=== PATIENT | male | born 1940 | race Caucasian/White ===

== ENCOUNTER 2020-03-26 10:21 | Outpatient (CLI) | payer MEDICARE, SELFPAY ==
--- NOTE | ~2020-03-26 | PE_ITS ---
EXAMINATION: PET skull to mid thigh DATE: 03/26/2020 12:41 INDICATION: Lung nodule TECHNIQUE: Blood glucose level was 122 mg/dL. 10.122 mCi of 18-fluorodeoxyglucose (18-FDG) was admini stered i.v. Low dose computed tomography (CT) images were acquired from the base of the brain to the proximal thighs for attenuation correction and anatomic localization. Positron emission tomography (P ET) images were acquired in the same distribution beginning 82 minutes after injection. The dose-nova th product (DLP) was 491.83 mGy-cm. COMPARISON: None FINDINGS: Head/neck: No abnormal FDG uptake is identified. FDG activity in the oral cavity and vocal cords with out suspicious CT correlate is likely physiologic. Changes in the globes are likely from ocular lens surgery. Chest: There is a 2.9 x 1.3 cm subsolid nodule of the right middle lobe with an approximately 8 mm so lid component. There is minimal associated FDG uptake with an SUV max of 2.5. There is dependent atel ectasis. No pleural effusion or pneumothorax is identified. No pathologically enlarged thoracic lymph nodes are identified. The heart size is normal. Calcified coronary artery atherosclerosis is noted. Abdomen/pelvis/proximal thighs: Physiologic FDG activity is present in the bowel and urinary tract. N o abnormal FDG uptake is identified. The liver, spleen, pancreas, gallbladder, and adrenal glands are normal. The kidneys are unremarkable. No pathologically enlarged abdominal or pelvic lymph nodes are identified. There is no free intraperitoneal gas or evidence of bowel obstruction. Colonic diverticu losis is present without evidence of diverticulitis. There is a 4.8 x 4.6 cm fusiform infrarenal abdo eamon aortic aneurysm. Musculoskeletal: Mild FDG uptake in the shoulders and hips is likely degenerative in nature. No suspi cious FDG uptake is identified. There is severe cervical and lumbar spondylosis. IMPRESSION: 1. Subsegmental nodule of the right middle lobe with an 8 mm solid component and mild associated FDG uptake. Findings could reflect adenocarcinoma in situ/minimally invasive adenocarcinoma or infection/ inflammation. Would recommend follow-up CT in three months or CT guided biopsy. 2. Fusiform infrarenal abdominal aortic aneurysm measuring up to 4.8 cm. Vascular surgical evaluation is recommended. Reviewed, dictated and finalized at location A. IMPRESSION: 1. Subsegmental nodule of the right middle lobe with an 8 mm solid component an d mild associated FDG uptake. Findings could reflect adenocarcinoma in situ/min imally invasive adenocarcinoma or infection/inflammation. Would recommend follo w-up CT in three months or CT guided biopsy. 2. Fusiform infrarenal abdominal aortic aneurysm measuring up to 4.8 cm. Vascul ar surgical evaluation is recommended.
[2020-03-26 10:47] LABS: Glucose Point of Care 122 (65-105)
== END 2020-03-26 10:22 | disposition home or self-care (01) ==
PROVIDERS: Visit Provider Internal Medicine
DX: R91.1 Solitary pulmonary nodule (principal); I71.4 Abdominal aortic aneurysm, without rupture
CPT/HCPCS: 78815; A9552

== ENCOUNTER 2022-06-03 01:07 | Day surgery (SDC) | payer MEDICARE, SELFPAY ==
[2022-05-25 15:53] VITALS: BMI 25.6
--- NOTE | 2022-06-03 07:00 | PM.HPGS ---
History of Present Illness History of Present Illness Consent: Risks, benefits, and alternatives have been discussed and questions answered. Patient agrees to proceed with procedure. Chief complaint: YANIQUE Narrative: Meir Amezquita is a 81 year old male With iron-deficiency anemia. His last hemoglobin was 9.8. He has had a polyp on 1 previous colonoscopy. He does not see blood in his stools. He has no gastrointestinal symptoms at this time. Review of Systems Review of Systems: All systems reviewed & are unremarkable except as noted in HPI and below PMFSH Social History Social History Smoking packs per day: 1 Smoking cigarettes per day: 20.0 Years smoked: 50 Smoking pack-years: 50.00 Smoking status: Former smoker Tobacco type: cigarettes Alcohol intake: never Substance use: never Substance use type: does not use Living arrangements: with family Spiritual care concerns: No Meds Home Medications and Allergies Home Medications Medication Instructions Recorded Confirmed Type ascorbic acid (vitamin C) 500 mg 500 mg PO DAILY 05/25/22 05/25/22 History capsule aspirin 81 mg tablet 81 mg PO DAILY 05/25/22 05/25/22 History atorvastatin 40 mg tablet 40 mg PO DAILY 05/25/22 05/25/22 History cholecalciferol (vitamin D3) 50 50 mcg PO BID 05/25/22 05/25/22 History mcg (2,000 unit) capsule (Vitamin D3) clopidogrel 75 mg tablet 75 mg PO DAILY 05/25/22 05/25/22 History ferrous sulfate 325 mg (65 mg 325 mg PO BID 05/25/22 05/25/22 History iron) tablet fluticasone propionate 50 2 spray intranasal DAILY 05/25/22 05/25/22 History mcg/actuation nasal spray,suspension gabapentin 100 mg capsule 200 mg PO TID 05/25/22 05/25/22 History metformin 500 mg tablet 500 mg PO BID 05/25/22 05/25/22 History omeprazole 20 mg capsule,delayed 20 mg PO BID 05/25/22 05/25/22 History release Allergies Allergy/AdvReac Type Severity Reaction Status Date / Time iohexol Allergy Chest Pain Verified 06/03/22 07:21 [From contrast - CT, X-RAY] codeine AdvReac Intermediate Nausea and Verified 06/03/22 07:21 Vomiting Exam Const: General: alert Orientation/consciousness: patient oriented x3 Resp: Auscultation: clear to auscultation bilaterally Cardio: Rhythm: regular rhythm GI: GI Palp: Yes Soft to palpation and No Tenderness to palpation present (GI) Neuro: General: patient oriented x3 Assessment and Plan Assessment and plan (1) Iron deficiency anemia: Code(s): D50.9 - Iron deficiency anemia, unspecified Status: Acute Assessment and Plan: EGD with possible biopsy or dilatation or cautery.Colonoscopy with possible biopsy or polypectomy or cautery or injection of substances.
[2022-06-03 07:22] VITALS: BP 158/81; PULSE 80; RESP 18; TEMP 35.8; O2SAT 99
[2022-06-03] MEDS: LACTATED RINGERS 1,000 ML 150 ML IV CONT (07:24)
[2022-06-03 07:26] LABS: Glucose Point of Care 194 mg/dl (65-105)
--- NOTE | 2022-06-03 08:10 | WPDANESEPPF ---
Anes - Initial Pre Proc Eval Procedure: Operation Date: 06/03/22 08:30 Proposed Procedures p Esophagogastroduodenoscopy & Colonoscopy - Dominguez Allen MD Date/Time: 06/03/22 08:10 Surgeon: Dominguez Allen MD Pre Op Diagnosis: YANIQUE Patient Data Age: 81 Gender: M Height: 1.68 m Weight: 70.9 kg Last Vital Signs Temp 96.4 F L 06/03/22 07:22 Pulse 80 06/03/22 07:22 Resp 18 06/03/22 07:22 BP 158/81 H 06/03/22 07:22 Pulse Ox 99 06/03/22 07:22 O2 Del Method Room Air 06/03/22 07:22 Allergies Allergy/AdvReac Type Severity Reaction Status Date / Time iohexol Allergy Chest Pain Verified 06/03/22 07:21 [From contrast - CT, X-RAY] codeine AdvReac Intermediate Nausea and Verified 06/03/22 07:21 Vomiting Home Medications Medication Instructions Recorded Confirmed Type ascorbic acid (vitamin C) 500 mg 500 mg PO DAILY 05/25/22 06/03/22 History capsule aspirin 81 mg tablet 81 mg PO DAILY 05/25/22 06/03/22 History atorvastatin 40 mg tablet 40 mg PO DAILY 05/25/22 06/03/22 History cholecalciferol (vitamin D3) 50 50 mcg PO BID 05/25/22 06/03/22 History mcg (2,000 unit) capsule (Vitamin D3) clopidogrel 75 mg tablet 75 mg PO DAILY 05/25/22 06/03/22 History ferrous sulfate 325 mg (65 mg 325 mg PO BID 05/25/22 06/03/22 History iron) tablet fluticasone propionate 50 2 spray intranasal DAILY 05/25/22 06/03/22 History mcg/actuation nasal spray,suspension gabapentin 100 mg capsule 200 mg PO TID 05/25/22 06/03/22 History metformin 500 mg tablet 500 mg PO BID 05/25/22 06/03/22 History omeprazole 20 mg capsule,delayed 20 mg PO BID 05/25/22 06/03/22 History release Laboratory Tests 06/03/22 07:17 POC Capillary Glucose 194 mg/dl H mg/dl (65-105) Patient hx anesthesia problems: none Family hx anesthesia problems: none Results Review: All pre-operative results and documents have been reviewed as part of the pre-operative evaluation. [facility] Social History Social History Smoking packs per day: 1 Smoking cigarettes per day: 20.0 Years smoked: 50 Smoking pack-years: 50.00 Smoking status: Former smoker Tobacco type: cigarettes Alcohol intake: never Substance use: never Substance use type: does not use Living arrangements: with family Spiritual care concerns: No Anes - Eval Final PreProcedure Day of Procedure 06/03/22 08:10 Patient weight: normal Heart: irregular rhythm Lungs: clear to auscultation Airway: Mallampati scale class III Neurological: alert and oriented ASA classification: IV Emergent: no Anesthetic plan: proceed Anesthesia type and monitoring: general GIVS and standard monitoring Results Review: All pre-operative results and documents have been reviewed as part of the pre-operative evaluation. Informed Consent: The patient's anesthetic plan and its attendant risks and benefits were discussed with the patient/family/POA. Questions were solicited and answers provided to the satisfaction of the patient/family/POA.
--- NOTE | 2022-06-03 08:39 | SUR.OPER ---
EGD began at 829- 831, Colonoscopy began at 837.
[2022-06-03 08:55] VITALS: BP 106/63; PULSE 69; RESP 20; O2SAT 96
[2022-06-03 09:05] VITALS: BP 128/67; PULSE 65; RESP 22; O2SAT 97
[2022-06-03 09:15] VITALS: BP 141/70; PULSE 65; RESP 23; O2SAT 95
== END 2022-06-03 09:30 | disposition home or self-care (01) ==
PROVIDERS: Visit Provider Internal Medicine Gastroenterology
PROC: 0DJ08ZZ Inspection of Upper Intestinal Tract, Via Natural or Artificial Opening Endoscopic (ICD-10-PCS; CPT 43235; principal; 2022-06-03 08:30)
DX: C18.0 Malignant neoplasm of cecum (principal); D50.9 Iron deficiency anemia, unspecified; K64.8 Other hemorrhoids; K57.30 Diverticulosis of large intestine without perforation or abscess without bleeding; K21.9 Gastro-esophageal reflux disease without esophagitis; Z79.02 Long term (current) use of antithrombotics/antiplatelets; Z79.82 Long term (current) use of aspirin; Z79.84 Long term (current) use of oral hypoglycemic drugs; Z87.891 Personal history of nicotine dependence
CPT/HCPCS: 45380; 43235; 82948; 88305; J7120

== ENCOUNTER 2023-08-05 00:13 | Day surgery (SDC) | payer MEDICARE, SELFPAY ==
[2023-07-27 11:01] VITALS: BMI 25.8
--- NOTE | 2023-07-27 12:37 | PC.NURSE ---
Spoke with ___PATIENT regarding medication __PLAVIX . Pt. verbalizes understanding that the last dose of __PLAVIX is to be taken on ____07/31/2023 and the Endoscopist will instruct them when to restart after the procedure.
--- NOTE | 2023-08-03 12:05 | SUR.PREOP ---
Patient called regarding upcoming procedure. Reviewed preop instructions, appointment times, and procedure prep.
--- NOTE | 2023-08-04 18:19 | PM.HPGS ---
History of Present Illness History of Present Illness Consent: Risks, benefits, and alternatives have been discussed and questions answered. Patient agrees to proceed with procedure. 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 He returns for surveillance colonoscopy. Review of Systems Review of Systems: All systems reviewed & are unremarkable except as noted in HPI and below PMFSH Social History Social History Smoking packs per day: 1 Smoking cigarettes per day: 20.0 Years smoked: 50 Smoking pack-years: 50.00 Smoking status: Former smoker Tobacco type: cigarettes Alcohol intake: current Substance use: never Substance use type: does not use Living arrangements: with family Spiritual care concerns: No Meds Home Medications and Allergies Home Medications Medication Instructions Recorded Confirmed Type ascorbic acid (vitamin C) 500 mg 500 mg PO DAILY 05/25/22 08/05/23 History capsule aspirin 81 mg tablet 81 mg PO DAILY 05/25/22 08/05/23 History atorvastatin 40 mg tablet 40 mg PO DAILY 05/25/22 08/05/23 History cholecalciferol (vitamin D3) 50 50 mcg PO BID 05/25/22 08/05/23 History mcg (2,000 unit) capsule (Vitamin D3) clopidogrel 75 mg tablet 75 mg PO DAILY 05/25/22 08/05/23 History ferrous sulfate 325 mg (65 mg 325 mg PO BID 05/25/22 08/05/23 History iron) tablet fluticasone propionate 50 2 spray intranasal DAILY 05/25/22 08/05/23 History mcg/actuation nasal spray,suspension gabapentin 100 mg capsule 200 mg PO TID 05/25/22 08/05/23 History metformin 500 mg tablet 500 mg PO BID 05/25/22 08/05/23 History omeprazole 20 mg capsule,delayed 20 mg PO BID 05/25/22 08/05/23 History release acetaminophen 500 mg tablet 500 mg PO BID 07/27/23 08/05/23 History Allergies Allergy/AdvReac Type Severity Reaction Status Date / Time iohexol Allergy Chest Pain Verified 08/05/23 10:59 [From contrast - CT, X-RAY] codeine AdvReac Intermediate Nausea and Verified 08/05/23 10:59 Vomiting Exam Resp: Auscultation: clear to auscultation bilaterally Cardio: Rate: regular rate Rhythm: regular rhythm GI: GI Palp: Yes Soft to palpation and No Tenderness to palpation present (GI) Assessment and Plan Assessment and plan (1) History of colon cancer: Code(s): Z85.038 - Personal history of other malignant neoplasm of large intestine Status: Acute Assessment and Plan: Colonoscopy with possible biopsy or polypectomy or cautery or injection of substances.
[2023-08-05 11:01] VITALS: BP 185/74; PULSE 72; RESP 18; TEMP 36.2; O2SAT 98; BMI 24.7
[2023-08-05] MEDS: LACTATED RINGERS 1,000 ML 150 ML IV CONT (11:12)
[2023-08-05 11:14] LABS: Glucose Point of Care 161 mg/dl (65-105)
--- NOTE | 2023-08-05 11:55 | WPDANESEPPF ---
Anes - Initial Pre Proc Eval Procedure: Operation Date: 08/05/23 12:30 Proposed Procedures p Colonoscopy - Dominguez Allen MD Date/Time: 08/05/23 11:55 Surgeon: Dominguez Allen MD Pre Op Diagnosis: hx of colon ca Patient Data Age: 82 Gender: M Height: 1.68 m Weight: 69.4 kg Last Vital Signs Temp 97.1 F L 08/05/23 11:01 Pulse 72 08/05/23 11:01 Resp 18 08/05/23 11:01 BP 185/74 H 08/05/23 11:01 Pulse Ox 98 08/05/23 11:01 O2 Del Method Room Air 08/05/23 11:01 Allergies Allergy/AdvReac Type Severity Reaction Status Date / Time iohexol Allergy Chest Pain Verified 08/05/23 10:59 [From contrast - CT, X-RAY] codeine AdvReac Intermediate Nausea and Verified 08/05/23 10:59 Vomiting Home Medications Medication Instructions Recorded Confirmed Type ascorbic acid (vitamin C) 500 mg 500 mg PO DAILY 05/25/22 08/05/23 History capsule aspirin 81 mg tablet 81 mg PO DAILY 05/25/22 08/05/23 History atorvastatin 40 mg tablet 40 mg PO DAILY 05/25/22 08/05/23 History cholecalciferol (vitamin D3) 50 50 mcg PO BID 05/25/22 08/05/23 History mcg (2,000 unit) capsule (Vitamin D3) clopidogrel 75 mg tablet 75 mg PO DAILY 05/25/22 08/05/23 History ferrous sulfate 325 mg (65 mg 325 mg PO BID 05/25/22 08/05/23 History iron) tablet fluticasone propionate 50 2 spray intranasal DAILY 05/25/22 08/05/23 History mcg/actuation nasal spray,suspension gabapentin 100 mg capsule 200 mg PO TID 05/25/22 08/05/23 History metformin 500 mg tablet 500 mg PO BID 05/25/22 08/05/23 History omeprazole 20 mg capsule,delayed 20 mg PO BID 05/25/22 08/05/23 History release acetaminophen 500 mg tablet 500 mg PO BID 07/27/23 08/05/23 History Laboratory Tests 08/05/23 11:11 POC Capillary Glucose 161 H mg/dl (65-105) Patient hx anesthesia problems: none Family hx anesthesia problems: none Results Review: All pre-operative results and documents have been reviewed as part of the pre-operative evaluation. [facility] Social History Social History Smoking packs per day: 1 Smoking cigarettes per day: 20.0 Years smoked: 50 Smoking pack-years: 50.00 Smoking status: Former smoker Tobacco type: cigarettes Alcohol intake: current Substance use: never Substance use type: does not use Living arrangements: with family Spiritual care concerns: No Anes - Eval Final PreProcedure Day of Procedure 08/05/23 11:55 Patient weight: normal Heart: regular rate and rhythm Lungs: clear to auscultation Airway: Mallampati scale class II Neurological: alert and oriented Last oral intake: >/= 8 hours ASA classification: III Emergent: no Anesthetic plan: proceed Anesthesia type and monitoring: general GIVS and standard monitoring Results Review: All pre-operative results and documents have been reviewed as part of the pre-operative evaluation. Informed Consent: The patient's anesthetic plan and its attendant risks and benefits were discussed with the patient/family/POA. Questions were solicited and answers provided to the satisfaction of the patient/family/POA.
[2023-08-05 12:38] VITALS: BP 123/49; PULSE 78; RESP 21; O2SAT 93
[2023-08-05 12:48] VITALS: BP 111/48; PULSE 76; RESP 19; O2SAT 95
[2023-08-05 12:58] VITALS: BP 132/63; PULSE 64; RESP 23; O2SAT 98
== END 2023-08-05 13:07 | disposition home or self-care (01) ==
PROVIDERS: Visit Provider Internal Medicine Gastroenterology
PROC: 0DJD8ZZ Inspection of Lower Intestinal Tract, Via Natural or Artificial Opening Endoscopic (ICD-10-PCS; CPT 45378; principal; 2023-08-05 12:30)
DX: Z12.11 Encounter for screening for malignant neoplasm of colon (principal); K64.8 Other hemorrhoids; K57.30 Diverticulosis of large intestine without perforation or abscess without bleeding; Z79.82 Long term (current) use of aspirin; Z79.02 Long term (current) use of antithrombotics/antiplatelets; Z79.84 Long term (current) use of oral hypoglycemic drugs; Z98.0 Intestinal bypass and anastomosis status; Z87.891 Personal history of nicotine dependence; Z85.038 Personal history of other malignant neoplasm of large intestine
CPT/HCPCS: G0105; 82948; J2704; J7120

== ENCOUNTER 2024-12-29 14:36 | Inpatient (IN) | payer MEDICARE, SELFPAY ==
[2024-12-29] VITALS (13 sets, daily range): BP systolic 117–185; BP diastolic 55–74; PULSE 93–102; RESP 14–28; TEMP 37.1–37.4; O2SAT 92–99; BMI 24.2
--- NOTE | ~2024-12-29 | XR_ITS ---
XR chest 1V portable 12/29/2024 15:29 Indication: Weakness Procedure: AP portable chest Comparison: No prior studies for comparison. Findings: Status post median sternotomy for CABG. Heart size normal. There is bilateral airspace dise ase, consistent with pneumonia. Possible small left effusion. No pneumothorax. Impression: 1: Bilateral airspace disease, compatible with pneumonia. Reviewed, dictated and finalized at location B. Impression: 1: Bilateral airspace disease, compatible with pneumonia.
--- NOTE | 2024-12-29 14:48 | ECG_ITS ---
Test Date: 2024-12-29 14:43:10 Measurements Intervals [place] Rate: 102 P: 19 AK: 229 QRS: -60 QRSD: 107 T: 35 QT: 345 QTc: 449 Interpretive Statements SINUS TACHYCARDIA WITH FIRST DEGREE AV BLOCK WITH FREQUENT VENTRICULAR PREMATURE COMPLEXES PATTERN CONSISTENT WITH PULMONARY DISEASE LEFT ANTERIOR FASCICULAR BLOCK [QRS AXIS <= -45, QR IN I, RS IN II] MODERATE ST DEPRESSION [0.05+ mV ST DEPRESSION] INTERPRETATION BASED ON A DEFAULT AGE OF 40 YEARS No previous ECG available for comparison Electronically Signed On 12-30-2024 17:05:33 CDT by Hector Calabrese M.D.
[2024-12-29 15:05] LABS: Basophils Percent Auto 0.6 % (0.2-1.2); Hematocrit 37.2 % (42.0-52.0); Hemoglobin 11.8 g/dL (14.0-18.0); Immature Granulocyte Absolute 0.02 K/mm3 (0.00-0.031); Immature Granulocyte Percent A 0.3 % (0-0.5); Lymphocytes Absolute Auto 0.81 K/mm3 (0.9-3.2); Lymphocytes Percent Auto 11.2 % (18.3-44.2); Mean Corpuscular HGB Conc 31.7 g/dl (32-36); Mean Corpuscular Hemoglobin 29.1 pg (26-34); Mean Corpuscular Volume 91.6 fl (80-100); Mean Platelet Volume 9.6 fl (7.4-10.4); Monocytes Percent Auto 14.4 % (2.6-8.5); Neutrophils Absolute Auto 5.3 K/mm3 (1.3-6.7); Neutrophils Percent Auto 73.5 % (45.5-73.1); Platelet Count Result 228 k/mm3 (150-375); Red Blood Count 4.06 M/mm3 (4.6-6.20); Red Cell Distribution Width 14.7 % (11.5-14.5); White Blood Count 7.2 K/mm3 (4.5-10.0)
[2024-12-29 15:10] LABS: Alanine Aminotransferase 32 U/L (6-50); Albumin Level 4.5 g/dL (3.5-5.1); Alkaline Phosphatase 56 U/L (38-126); Anion Gap 15 mmol/L (4-12); Aspartate Amino Transferase 37 U/L (17-59); Bilirubin,Total 0.5 mg/dL (0.2-1.3); Blood Urea Nitrogen 18 mg/dL (9-20); Calcium 9.4 mg/dL (8.4-10.2); Carbon Dioxide 20 mmol/L (22-30); Chloride 101 mmol/L (98-107); Estimated CRCL calculation 31 ml/min; Estimated Glomerular Filt Rate 46; Glucose 142 mg/dL (65-110); Potassium 4.8 mmol/L (3.4-5.0); Sodium 136 mmol/L (137-145)
--- OUTSIDE RECORDS SUMMARY | 2024-12-29 15:21 | XMS_ITS | Clinical Summary ---
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 3 Active atorvastatin (LIPITOR) 40 MG tablet 1 Active cholecalcifero l (VITAMIN D-3) 25 MCG (1000 UT) capsule Take 1,000 Units by mouth daily Active coenzyme Q-10 100 MG capsule Take 100 mg by mouth daily Active dilTIAZem CD (CARDIZEM CD) 360 MG 24 hr capsule 1 Active ferrous sulfate 325 (65 Fe) MG tablet every 12 hours Activ e fluticasone (FLONASE) 50 MCG/ACT nasal spray 1 Active glimepiride (AMARYL) 4 MG tablet 1 Active Accu-Chek Guide test strip 1 Active lisinopril (PRINIVIL) 10 MG tablet 1 Active magnesium oxide 250 MG tablet Take 250 mg by mouth daily Active metFORMIN (GLUCOPHAGE) 500 MG tablet 1 Active nitroglycerin (NITROSTAT) 0.4 MG SL tablet nitroglycerin 0.4 mg sublingual tablet Active omeprazole (PriLOSEC) [address] capsule 1 Active alpha tocopherol (VITAMIN E) 400 units capsule Take 400 Units by mouth daily Active omega-3 (FISH OIL) 1000 MG capsule Take 500 mg by mouth daily Active Active Problems Problem Noted Date Diagnosed Date 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 Benign essential hypertension 01/04/2020 Overview (06/05/2021): Last Assessment & Plan: -Will resume home medication diltiazem and Lisinopril -OU status, to Q 4hr VS after 24 hours Coronary arteriosclerosis 01/04/2020 Pure hypercholesterolemia 01/04/2020 Type 2 diabetes mellitus without complication Overview (06/05/2021): Last Assessment & Plan: Adult hyperglycemic management -Insulin per protocol -Home glimepiride and metformin on hold -Carbohydrate persistent diet Abdominal aortic aneurysm without rupture 2017 Overview (06/05/2021): Last Assessment & Plan: - Outpatient CTA with 54 mm infrarenal abdominal aortic aneurysm - OR 07/16 for planned EVAR; left limb was noted to partially cover the ostium of the left hypogastric artery; however, brisk flow through the vessel was observed, and the right hypogastric artery was widely patent - ADAT - Q4h NV checks - Monitor for buttock claudication with ambulation - Cr 1.33 post-procedure Gastroesophageal reflux disease 02/26/2017 Immunizations Immunization Administration Dates Next Due Influenza Split High Dose Pr eservative Free IM 05/30/2021,05/19/2019,05/09/2018 Influenza TIV (IM) 05/19/2013 Influenza, Injectable, Mdck, Preservative Free, Quadrivalt 05/14/2020 Moderna Sars-cov-2 Vaccination 10/07/2020,2020 Pneumococcal Conjugate 13-Valent 05/19/2019,08/09 Family History Medical History Relation Comments Kidney disease Neg Hx Social History Tobacco Use Types Packs/Day Years Used Date Smoking Tobacco: Former Smokeless Tobacco: Never Alcohol Use Standard Drinks/Week Comments Not Currently 0 (1 standard drink = 0.6 oz pur e alcohol) Sex and Gender Information Value Date Recorded Sex Assigned at Not on file Legal Sex Male 9:22 AM MDT Gender Identity Not on file Sexual Orientation Not on file Last Filed Vital Signs Vital Sign Reading Time Taken Comments Blood Pressure 136/78 06/09/2021 11:12 AM CDT Pulse 72 06/09/2021 11:12 AM CDT Temperature 36.4 C (97.6 F) 06/09/2021 11:12 AM CDT Respiratory Rate - - Oxygen Saturation - - Inhaled Oxygen Concentration - - Weight 77.1 kg (170 lb) 06/09/2021 11:12 AM CDT Height 170.2 cm (5' 7 ) 06/09/2021 11:12 AM CDT Body Mass Index 26.63 06/09/2021 11:12 AM CDT Plan of Treatment Health Maintenance Due Date Last Done Comments Pneumococcal PPSV23/PCV13 65 + Years / Low and Medium Risk (2 of 3 - PPSV23) 05/19/2020 05/19/2019, 08/24/2014 COVID-19 Vaccine (3 - season) 04/09/202408/2020, 08/09/2020 Influenza Vaccine (Season Ended) 2025 05/14/20, 05/19/2013 Insurance [employer]AGE Care Teams Head Filter Tank Tender Helper Relationship Specialty Start Date End Date Prince Angulo MD [address] [phone] PCP - General Internal Medicine 06/09/21
--- OUTSIDE RECORDS SUMMARY | 2024-12-29 15:21 | XMS_ITS | CONTINUITY OF CARE DOCUMENT ---
Author Name manoj aranda Address Unknown Organization [facility] Address [address] [place] [address] [address] [place] [address] Phone [phone] Care Team Providers Care Program Coordinator Name Role Phone Garrick UGARTE, Pepe Unavailable LUCIA CARTER MD Unavailable [phone] LUCIA CARTER MD Unavailable PROBLEMS Condition Status Date Provider Notes CAD-- PCI to RCA in 1994 active Pepe lewis MD CABG, x 4 [place]ISON to LAD, radia l to OM, SVG to RCA and ramus. 09/2021 active Pepe Mccauley MD Myocardial infarction ([place]) active Pepe taylor MD Carotid arterial disease-->7 0% MARIA L, s/p CEA 11/28 active Pepe Mccauley MD Hyperlipidemia active Pepe Mccauley MD HTN active Pepe Mccauley MD CHF completed - Pepe Mccauley MD Syncope completed - Pepe Mccauley MD Diabetes mellitus, type 2 active Pepe donato MD AAA s/p repair - follow at [facility] active Pepe Mccauley MD Peripheral vascular disease (PVD) active Pepe Mccauley MD GERD active Pepe Mccauley MD CKD 3 active Pepe Mccauley MD Chronic back pain active Pepe Mccauley MD Colon cancer, stage 1 s/p surgery in 2021 active Pepe Mccauley MD PACs completed - Pepe Mccauley MD ENCOUNTERS Date Type Provider Location Encounter Diag nosis - In-person encounter Office Visit Pepe Mccauley MD [facility] - In-person encounter Office Visit Pepe Mccauley MD [facility] CHFSyncopePACs - In-person encounter Office Visit Pepe Mccauley MD [facility] - In-person encounter Office Visit Pepe Mccauley MD [facility] - In-person encounter Office Visit Pepe Mccauley MD [facility] Carotid arterial disease-->70% MARIA L, s/p CEA 11/28Colon cancer, stage 1 s/p surgery in 2021 - In-person encounter Office Visit Pepe Mccauley MD [facility] AAA s/p repair - follow at [facility] cancer, stage 1 s/p surgery in 2021 - In-person encounter Office Visit Pepe Mccauley MD [facility] Carotid arterial disease-->70% MARIA L, s/p CEA 11/28 - In-person encounter Office Visit Pepe Mccauley MD [facility] CAD-- PCI to RCA in 1994CABG, x 4 [place] to LAD, radial to OM, SVG to RCA and ramus. 09/2021Myocardial infarction ([place])Carotid arterial disease-->70% MARIA L, s/p CEA 11/28HyperlipidemiaHTND iabetes mellitus, type 2AAA s/p repair [facility]GERDCKD 3Chronic back pain VITAL SIGNS Date Observation Value Provider Body Mass Index (Ratio) 25.82 kg/m2 Khari Mccauley MD blood pressure, diastolic 70 mm[Hg] An iyah [place] blood pressure, systolic 144 mm[Hg] Nunu alaniz [place] oxygen saturation, oximetry 97 % Kelley [place] pulse rate 73 /min Kelley [place] respiratory rate E&M 12 /min Kelley [place] weight E&M 160 [lb_av] Kelley [place] height E&M 66 [in_i] Kelley [place] blood pressure, cuff size regular An ira [place] Body Mass Index (Ratio) 25.60 kg/m2 Khari Mccauley MD weight E&M 158.6 [lb_av] Samantha Maspeth oxygen saturation, oximetry 94 % Samantha Maspeth pulse rate 77 /min Samantha Maspeth blood pressure, cuff size regular [facility], diastolic 79 mm[Hg] Ta bitha Maspeth blood pressure, systolic 150 mm[Hg] Tab itha Maspeth respiratory rate E&M 12 /min Samantha Maspeth height E&M 66 [in_i] Samantha Maspeth Body Mass Index (Ratio) 25.50 kg/m2 Khari Mccauley MD blood pressure, diastolic 83 mm[Hg] Juliette lenore [place] blood pressure, systolic 156 mm[Hg] Any a Dioni oxygen saturation, oximetry 91 % Mariajose Dioni pulse rate 86 /min Mariajose Dioni weight E&M 158 [lb_av] Mariajose Dioni blood pressure, cuff size large An lenore [place] height E&M 66 [in_i] Mariajose Dioni Body Mass Index (Ratio) 23.08 kg/m2 Khari Mccauley MD pulse rate 73 /min [facility] blood pressure, cuff size regular Fa [facility] blood pressure, diastolic 86 mm[Hg] Fa [facility] blood pressure, systolic 163 mm[Hg] Dipak [facility] oxygen saturation, oximetry 97 % [facility] respiratory rate E&M 16 /min Toya goodson weight E&M 143 [lb_av] [facility] height E&M 66 [in_i] [facility] Body Mass Index (Ratio) 25.66 kg/m2 Khari Mccauley MD blood pressure, diastolic 78 mm[Hg] [facility] blood pressure, systolic 165 mm[Hg] [facility] blood pressure, diastolic 78 mm[Hg] [facility] blood pressure, systolic 165 mm[Hg] [facility] pulse rate 68 /min Robert [facility] blood pressure, cuff size regular Carlton rr blood pressure, diastolic 78 mm[Hg] Carlton rret blood pressure, systolic 165 mm[Hg] [facility] oxygen saturation, oximetry 99 % Robert respiratory rate E&M 12 /min Robert weight E&M 159 [lb_av] Robert height E&M 66 [in_i] [facility] Body Mass Index (Ratio) 25.50 kg/m2 Khari Mccauley MD blood pressure, diastolic 86 mm[Hg] Juliette [place]ley blood pressure, systolic 189 mm[Hg] Lynne [place] weight E&M 158 [lb_av] Mariajose [place] height E&M 66 [in_i] Mariajose Wheatley blood pressure, cuff size large An lenore [place]ley pulse rate 69 /min Mariajose Wheatley oxygen saturation, oximetry 99 % Mariajose Wheatley Body Mass Index (Ratio) 25.18 kg/m2 Khari Mccauley MD blood pressure, diastolic 70 mm[Hg] Sa ra Bailon blood pressure, systolic 152 mm[Hg] Latha a Bailon respiratory rate E&M 17 /min Wendy Si ms oxygen saturation, oximetry 100 % Wendy Bailon pulse rate 74 /min Wendy Bailon weight E&M 156 [lb_av] Wendy Bailon blood pressure, cuff size regular Sa ra [place] height E&M 66 [in_i] [facility] Body Mass Index (Ratio) 25.34 kg/m2 Antoni Brian blood pressure, diastolic 83 mm[Hg] Li nkLogic blood pressure, systolic 162 mm[Hg] Kandace kLog blood pressure, diastolic 83 mm[Hg] Susan White blood pressure, systolic 162 mm[Hg] Christiane salaswellingtonmiguelito White respiratory rate E&M 16 /min Estrella White oxygen saturation, oximetry 100 % Liberty White pulse rate 86 /min Liberty webster height E&M 66 [in_i] Liberty webster weight E&M 157 [lb_av] Liberty webster blood pressure, cuff size regular Susan WardTish Christopher ALLERGIES Allergy Name Onset Date Reaction Criticality Status IVP DYE Low Criticality active CODEINE Low Criticality active HISTORY OF MEDICATION USE Medication Status Instructions Dates Provider Indications Com ments magnesium oxide 400 mg (241.3 mg magnesium) tablet active TAKE 1 TABLET BY MOUTH EVERY DAY Amelie Oglesby [employer] glimepiride 2 mg tablet active Pepe Mccauley MD magnesium oxide 400 mg (241.3 mg magnesium) tablet active TAKE 1 TABLET BY MOUTH EVERY DAY Pepe Mccauley MD amlodipine 2.5 mg tablet active Take 1 tablet by mouth once a day Amelie Wilson RN gabapentin 100 mg capsule completed Take 1 twice a day - Antoni Torres atorvastatin 40 mg tablet active Wendy Bailon ferrous sulfate 325 mg (65 mg iron) tablet active Take twice a day Wendy Williams Flonase Allergy Relief unspecified unspecified active Wendy Bailon omeprazole 20 mg capsule,delayed release(DR/EC) active twice a day eWndy Williams aspirin 81 mg tablet,delayed release (DR/EC) active Take 1 tablet by mouth once a day Antoni Torres clopidogrel 75 mg tablet active Antoni Torres metformin 500 mg tablet active Antoni Torres SOCIAL HISTORY Date Observation Value Provider personal history of marijuana use no Amelie Youmiglia [facility] drug use no Amelie Avelinomig silviano [facility] alcohol use no Amelie Youmig silviano [facility] smoking status Never smoker Amelie Roberts igldamián [facility] smoking status Never smoker Toya Cornelius social history reviewed E&M revi ewed - no changes required Pepe Mccauley MD smoking status Never smoker Mariajose Wheatley number of grandchildren Pepe Razo social history reviewed E&M revi ewed - no changes required Pretty Razo social history E&M S moking History: Nereyda jackson has never smoked. Pretty Razo social history reviewed E&M revi ewed - no changes required Antoni Torres smoking status Never smoker Antoni Torres social history reviewed E&M revi ewed - no changes required Antoni Torres FUNCTIONAL STATUS Date Observation Value Provider HRA, CV Assess/Plan, Angina (inactive) Management Plan continue current therapy Amelie Reny [facility] HRA, CV Assess/Plan, Angina (inactive) Management Plan continue current therapy Pepe Mccauley MD HRA, CV Assess/Plan, Angina (inactive) Management Plan continue current therapy Pepe Mccauley MD HRA, CV Assess/Plan, Angina (inactive) Management Plan continue current therapy Antoni Torres HRA, CV Assess/Plan, Angina (inactive) Management Plan continue current therapy Pepe Mccauley MD HRA, CV Assess/Plan, Angina (inactive) Management Plan continue current therapy Pretty Razo HRA, CV Assess/Plan, Angina (inactive) Management Plan continue current therapy Antoni Torres HRA, CV Assess/Plan, Angina (inactive) Management Plan continue current therapy Antoni Torres INSURANCE PROVIDERS Payer name Policy type / Coverage type [place] red libertarian ID [employer] MEDICARE [employer]AGE [address] 0 [address] (HMO POS) Medicare [id number] ADVANCE DIRECTIVES Name Date DISCUSSED - NO DECISION MADE TREATMENT PLAN Date Name Performer [id number],S, Pepe Mccauley MD [id number],B, Pepe Mccauley MD [id number],S, Pepe Mccauley MD [id number],B, Pepe Mccauley MD [id number],S, Antoni Garlandmedza i [id number],B, Antoni Garlandmedza i [id number],S, Antoni Ahmedza i [id number],S, Antoni Ahmedza i [id number],S, Antoni Ahmedza i [id number],S, Antoni Ahmedza i [id number],S, Antoni Ahmedza i [id number],S, Antoni Ahmedza i [id number],S, Antoni Ahmedza i [id number],S, Antoni Leong i [id number],S, Antoni Leong i [id number],S, Antoni Leong i [id number],S, Antoni Leong i [id number],B, Antoni Leong i Cardiology:No new ch est pain or SOB H e had nuclear stress last year c ontinue medical management This visit has been a part of the consistent, comprehensive, and ongoing management of the chronic medical condition(s) listed above for the patient. Pepe Mccauley MD Cardiology:reports l ast Hgb A1C of 7.2% His updated medication list for this problem includes: Glimepiride 2 Mg Tablet (Glimepiride) Aspirin 81 Mg Tablet,delayed Release (dr/ec) (Aspirin) ..... Take 1 tablet by mouth once a day Metformin 500 Mg Tablet (Metformin) [facility] Cardiology:follows at [facility] [place] Cardiology:follows with vascular surgery at [facility] Cardiology:remains o n statin therapy H is updated medication list for this problem includes: Atorvastatin 40 Mg Tablet (Atorvastatin) [facility] Cardiology:BP stable c ontinue present medication regimen H is updated medication list for this problem includes: Amlodipine 2.5 Mg Tablet (Amlodipine) ..... Take 1 tablet by mouth once a day Aspirin 81 Mg Tablet,delayed Release (dr/ec) (Aspirin) ..... Take 1 tablet by mouth once a day [facility] Cardiology:No new ch est pain or SOB H e had nuclear stress last year c ontinue medical management [facility] Cardiology: H is updated medication list for this problem includes: Amlodipine 2.5 Mg Tablet (Amlodipine) ..... Take 1 tablet by mouth once a day Aspirin 81 Mg Tablet,delayed Release (dr/ec) (Aspirin) ..... Take 1 tablet by mouth once a day Pepe Mccauley MD Cardiology Pepe Mccauley MD Cardiology Pepe Mccauley MD Cardiology Pepe Mccauley MD Cardiology Pepe Mccauley MD Cardiology:This visi t has been a part of the consistent, comprehensive, and ongoing management of the chronic medical condition(s) listed above for the patient. ' Pepe Mccauley MD Telehealth: H is updated medication list for this problem includes: Amlodipine 2.5 Mg Tablet (Amlodipine) ..... Take 1 tablet by mouth once a day Aspirin 81 Mg Tablet,delayed Release (dr/ec) (Aspirin) ..... Take 1 tablet by mouth once a day Clopidogrel 75 Mg Tablet (Clopidogrel) [facility] Telehealth: H is updated medication list for this problem includes: Amlodipine 2.5 Mg Tablet (Amlodipine) ..... Take 1 tablet by mouth once a day Aspirin 81 Mg Tablet,delayed Release (dr/ec) (Aspirin) ..... Take 1 tablet by mouth once a day [facility] Telehealth: H is updated medication list for this problem includes: Amlodipine 2.5 Mg Tablet (Amlodipine) ..... Take 1 tablet by mouth once a day Aspirin 81 Mg Tablet,delayed Release (dr/ec) (Aspirin) ..... Take 1 tablet by mouth once a day Clopidogrel 75 Mg Tablet (Clopidogrel) [facility] Telehealth: H is updated medication list for this problem includes: Amlodipine 2.5 Mg Tablet (Amlodipine) ..... Take 1 tablet by mouth once a day Aspirin 81 Mg Tablet,delayed Release (dr/ec) (Aspirin) ..... Take 1 tablet by mouth once a day Clopidogrel 75 Mg Tablet (Clopidogrel) [facility] Telehealth [facility] Cardiology: H is updated medication list for this problem includes: Amlodipine 2.5 Mg Tablet (Amlodipine) ..... Take 1 tablet by mouth once a day Aspirin 81 Mg Tablet,delayed Release (dr/ec) (Aspirin) ..... Take 1 tablet by mouth once a day Clopidogrel 75 Mg Tablet (Clopidogrel) Pepe Mccauley MD Cardiology: H is updated medication list for this problem includes: Amlodipine 2.5 Mg Tablet (Amlodipine) ..... Take 1 tablet by mouth once a day Aspirin 81 Mg Tablet,delayed Release (dr/ec) (Aspirin) ..... Take 1 tablet by mouth once a day Clopidogrel 75 Mg Tablet (Clopidogrel) Pepe Mccauley MD Cardiology Pepe Mccauley MD Cardiology Antoni aliyah Cardiology: H is updated medication list for this problem includes: Aspirin 81 Mg Tablet,delayed Release (dr/ec) (Aspirin) ..... Take 1 tablet by mouth once a day Metformin 500 Mg Tablet (Metformin) [facility]: B P today: 163/86 P rior BP: 165/78 (03/23/2023) His updated medication list for this problem includes: Aspirin 81 Mg Tablet,delayed Release (dr/ec) (Aspirin) ..... Take 1 tablet by mouth once a day [facility] Cardiology: H is updated medication list for this problem includes: Aspirin 81 Mg Tablet,delayed Release (dr/ec) (Aspirin) ..... Take 1 tablet by mouth once a day Clopidogrel 75 Mg Tablet (Clopidogrel) [facility] Cardiology: H is updated medication list for this problem includes: Aspirin 81 Mg Tablet,delayed Release (dr/ec) (Aspirin) ..... Take 1 tablet by mouth once a day Clopidogrel 75 Mg Tablet (Clopidogrel) [facility] Cardiology: H is updated medication list for this problem includes: Aspirin 81 Mg Tablet,delayed Release (dr/ec) (Aspirin) ..... Take 1 tablet by mouth once a day Clopidogrel 75 Mg Tablet (Clopidogrel) Antoni Ahmedzai Cardiology Antoni Ahmedzai Cardiology Pepe Mccauley MD Cardiology Pepe Mccauley MD Cardiology Pepe Mccauley MD Cardiology Pepe Mccauley MD Cardiology Antoni Ahmedzai Cardiology Antoni Ahmedzai Cardiology Antoni Ahmedzai Cardiology Antoni Ahmedzai Cardiology Antoni Ahmedzai Cardiology Antoni Ahmedzai Cardiology Antoni Ahmedzai Cardiology Antoni Ahmedzai Cardiology Antoni Ahmedzai Cardiology Antoni Ahmedzai Cardiology Antoni Ahmedzai Cardiology Antoni Ahmedzai Cardiology Antoni Ahmedzai Cardiology Antoni Ahmedzai Date Name Complete Echo HISTORY OF PROCEDURES Procedure Date Procedure Name Provider Procedure Notes S tatus Complex e/m visit add on Pepe Mccauley MD completed Complex e/m visit add on Pepe Mccauley MD completed Complex e/m visit add on Pepe Mccauley MD completed EKG Pepe Mccauley MD completed EKG Pepe Mccauley MD completed
--- OUTSIDE RECORDS SUMMARY | 2024-12-29 15:21 | XMS_ITS | Clinical Summary ---
Author Organization [facility] Fina Parsons Address [address], [place] [address] Care Team Providers Care Health Director Name Role Phone Griffin Angulo MD Primary Care Provider [phone] Allergies Active Allergy Reactions Criticality Noted Date Comments Codeine Nausea and Vomiting Low 07/16/2020 Medications atorvastatin (LIPITOR) 40 mg tablet atorvastatin 40 mg tablet TAKE 1 TABLET BY MOUTH AT BEDTIME 1 Active aspirin (ECOTRIN EC) 81 mg Tablet, Delayed Release (E.C.) Take 81 mg by mouth. Active cholecalciferol , Vitamin D3, (VITAMIN D3) 25 mcg (1,000 unit) Capsule Take 1,000 Units by mouth daily. Active diltiaZEM (TIAZAC) 360 mg Extended Release capsule diltiazem CD 360 mg capsule,extended release 24 hr 1 Active ferrous sulfate 325 mg (65 mg iron) tablet 2 times daily. Ac tive glimepiride (AMARYL) 4 mg tablet glimepiride 4 mg tablet TAKE 1 TABLET BY MOUTH DAILY IN THE MORNING FOR TYPE II DIABETES 1 Active Docosahexanoic Acid-Eicosapent 120-180 mg Capsule Take 500 mg by mouth daily. Active fluticasone propionate (FLONASE) 50 mcg/spray [place], Suspension nasal inhaler 1 Active lisinopriL (PRINIVIL) 10 mg tablet lisinopril 10 mg tablet TAKE 1 TABLET BY MOUTH ONCE DAILY 1 Active metFORMIN (GLUCOPHAGE) 500 mg tablet metformin 500 mg tablet TAKE 1 TABLET BY MOUTH BEFORE BREAKFAST AND 2 TABLETS BEFORE SUPPER 0 Active omeprazole (PriLOSEC) 20 mg Capsule, Delayed Release(E.C.) 1 Active vitamin E 400 unit capsule Take 400 Units by mouth. Active coenzyme Q10 100 mg Capsule Take 100 mg by mouth daily. Active nitroglycerin (NITROSTAT) 0.4 mg Tablet, Sublingual 1 Active ondansetron (Zofran) 4 mg Tablet Zofran 4 mg tablet Take 1 tablet every 6-8 hours by oral route as needed. Active magnesium oxide 250 mg magnesium Tablet Take 250 mg by mouth daily. 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 Family History Medical History Relation Name Comments Heart Disease Son Bradley (61) Relation Name Status Comments Brother Father Mother Sister Son Bradley (61) Alive Social History Tobacco Use Types Packs/Day Years Used Date Smoking Tobacco: Former Cigarettes Tobacco Cessation:Counseling Given: No Alcohol Use Standard Drinks/Week Comments Never 0 (1 standard drink = 0.6 oz pur e alcohol) Sex and Gender Information Value Date Recorded Sex Assigned at Not on file Legal Sex Male 1:31 PM [employer]OR [place] Gender Identity Not on file Sexual Orientation Not on file Last Filed Vital Signs Vital Sign Reading Time Taken Comments Blood Pressure 129/60 08/29/2021 1:10 PM [employer]OR [place] Pulse 65 08/29/2021 1:10 PM [employer]OR [place] Temperature 36.7 C (98 F) 08/29/2021 1:10 PM [employer]OR [place] Respiratory Rate 16 07/24/2021 1:07 PM [employer]OR [place] Oxygen Saturation 97% 08/29/2021 1:10 PM [employer]OR [place] Inhaled Oxygen Concentration - - Weight 75.1 kg (165 lb 9.6 oz) 08/29/2021 1:10 P M [employer] [place] Height 167.6 cm (5' 6 ) 08/29/2021 1:10 PM [employer]OR [place] Body Mass Index 26.73 08/29/2021 1:10 PM DIRECTOR [place] Plan of Treatment Health Maintenance Due Date Last Done Comments DIABETES ANNUAL FOOT EXAM 1960 DIABETES ANNUAL RETINAL EXAM 1960 DIABETES MICROALBUMIN ANNUAL SCREEN 1960 LDL CHOLESTEROL ANNUAL 1960 DTAP/TDAP/TD VACCINES (1 - Tdap) 1961 ZOSTER VACCINE (1 of 2) 1992 RSV VACCINE (60+ or ) (1 - 1-dose 75+ series) 2017 PNEUMOCOCCAL VACCINE 50+ YEA RS (2 of 2 - PPSV23) 07/14/2019 05/19/2019, 08/24/2014 DIABETES HBA1C Q 6 MONTHS 10/02/2021 04/01/2021 INFLUENZA VACCINE (#1) 2024 , 05/30/2021, 05/14/2020, Additional history exists [place] [address] [place] [id number] [place] [id number] Care Teams Health Director Relationship Specialty Start Date End Date Griffin Angulo MD [address] [place] [id number] PCP - General Family Practice 07/24/21
[2024-12-29] MEDS: SODIUM CHLORIDE 0.9% IV 1,000 ML 999 ML IV CONT ×2 (15:30→23:12)
--- NOTE | 2024-12-29 16:29 | ED.WEAKNESS ---
HPI - Weakness General Chief complaint: Weakness Stated complaint: Weakness, COVID + Time Seen by Provider: 12/29/24 15:13 History of Present Illness HPI Narrative: Pt presents with chills and generalized weakness today. Pt did home covid test and it was positive. Called his PCP and they prescribed paxlovid. Pt also has cough and feels like he has fever. Pt denies SOB. Related Data Home Medications ?Medication ?Instructions ?Recorded ?Confirmed ?Last Taken ?Type ascorbic acid (vitamin C) 500 mg 500 mg PO DAILY 05/25/22 08/05/23 Unknown History capsule aspirin 81 mg tablet 81 mg PO DAILY 05/25/22 08/05/23 Unknown History atorvastatin 40 mg tablet 40 mg PO DAILY 05/25/22 08/05/23 Unknown History cholecalciferol (vitamin D3) 50 50 mcg PO BID 05/25/22 08/05/23 Unknown History mcg (2,000 unit) capsule (Vitamin D3) clopidogrel 75 mg tablet 75 mg PO DAILY 05/25/22 08/05/23 07/31/23 History ferrous sulfate 325 mg (65 mg 325 mg PO BID 05/25/22 08/05/23 Unknown History iron) tablet fluticasone propionate 50 2 spray intranasal DAILY 05/25/22 08/05/23 Unknown History mcg/actuation nasal spray,suspension gabapentin 100 mg capsule 200 mg PO TID 05/25/22 08/05/23 Unknown History metformin 500 mg tablet 500 mg PO BID 05/25/22 08/05/23 Unknown History omeprazole 20 mg capsule,delayed 20 mg PO BID 05/25/22 08/05/23 Unknown History release acetaminophen 500 mg tablet 500 mg PO BID 07/27/23 08/05/23 Unknown History Allergies Allergy/AdvReac Type Severity Reaction Status Date / Time iohexol (From contrast - CT, Allergy Chest Pain Verified 12/29/24 14:49 X-RAY) codeine AdvReac Intermediate Nausea and Verified 12/29/24 14:49 Vomiting Review of Systems Review of Systems: All systems reviewed & are unremarkable except as noted in HPI and below PMFSH Social History Social History Smoking packs per day: 1 Smoking cigarettes per day: 20.0 Years smoked: 50 Smoking pack-years: 50.00 Smoking status: Former smoker Tobacco type: cigarettes Alcohol intake: current Substance use: never Substance use type: does not use Living arrangements: with family Spiritual care concerns: No Exam Const: General: no acute distress Nutritional Appearance: well nourished Orientation/consciousness: patient oriented x3 Limitations: no limitations Eyes: Conjunctivae: conjunctivae normal Pupils: Equal, round and reactive pupils present EOM: EOMs intact bilaterally Neck: Neck: normal visual inspection Resp: Effort & Inspection: normal respiratory effort Auscultation: clear to auscultation bilaterally Cardio: Rate: regular rate Rhythm: regular rhythm GI: GI Palp: Yes Soft to palpation Auscultation: normal bowel sounds Skin: General skin exam: normal color Rashes: no rashes Wounds: no wounds Neuro: General: patient oriented x3, moves all extremities, no meningeal signs, no focal motor deficits and CN's II-XI intact bilaterally Speech: normal speech Extrem: General: normal to inspection and no clubbing, cyanosis or edema Psych: Mental Status: mental status grossly normal Affect: normal affect Attitude: cooperative Course Vital Signs Vital signs: Vital Signs Temperature 98.8 F 12/29/24 14:38 Respiratory Rate 28 H 12/29/24 14:38 Blood Pressure 185/67 H 12/29/24 14:38 Pulse Oximetry 92 12/29/24 14:38 Oxygen Delivery Room Air 12/29/24 14:38 Temperature 98.8 F 12/29/24 14:38 Pulse Rate 99 12/29/24 17:49 Respiratory Rate 19 12/29/24 17:49 Blood Pressure 117/61 12/29/24 17:49 Pulse Oximetry 95 12/29/24 17:49 Oxygen Delivery Nasal Cannula 12/29/24 14:46 Oxygen Flow Rate 2 12/29/24 14:46 MDM - Weakness MDM Narrative Medical decision making narrative: Pt presents with weakness and cough tested positive for covid. will get sepsis labs and cxr and ua. lactate elevated will give 1 l IVF and reassess resp status given age before giving full 30 mg/kg. pt haswpneumonia on cxr. will start rocephin and zithromax and call HM. Discussed with Kathie Saravia and will admit. Lab Data 12/29/24 14:51 12/29/24 14:51 Labs: Lab Results 12/29/24 12/29/2425 Range/Units 14:51 16:56 17:05 WBC 7.2 (4.5-10.0) K/mm3 RBC 4.06 L (4.6-6.20) M/mm3 Hgb 11.8 L (14.0-18.0) g/dL Hct 37.2 L (42.0-52.0) % MCV 91.6 (80-100) fl MCH 29.1 (26-34) pg MCHC 31.7 L (32-36) g/dl RDW 14.7 H (11.5-14.5) % Plt Count 228 (150-375) k/mm3 MPV 9.6 (7.4-10.4) fl Immature Gran % (Auto) 0.3 (0-0.5) % Neut % (Auto) 73.5 H (45.5-73.1) % Lymph % (Auto) 11.2 L (18.3-44.2) % [place] % (Auto) 14.4 H (2.6-8.5) % Eos % (Auto) 0.0 (0-4.4) % Baso % (Auto) 0.6 (0.2-1.2) % Lymph # (Auto) 0.81 L (0.9-3.2) K/mm3 [place] # (Auto) 1.0 H (0.1-0.6) K/mm3 Eos # (Auto) 0.0 (0-0.3) K/mm3 Baso # (Auto) 0.0 (0.0-0.1) K/mm3 Abs Immat Gran (auto) 0.02 (0.00-0.031) K/mm3 Absolute Neuts (auto) 5.3 (1.3-6.7) K/mm3 Absolute Nucleated RBC 0.000 (0.0-0.012) K/mm3 Nucleated RBC % 0.0 (0.0-0.2) % Sodium 136 L (137-145) mmol/L Potassium 4.8 (3.4-5.0) mmol/L Chloride 101 (98-107) mmol/L Carbon Dioxide 20 L (22-30) mmol/L Anion Gap 15 H (4-12) mmol/L BUN 18 (9-20) mg/dL Creatinine 1.48 H (0.7-1.3) mg/dL Estim Creat Clear Calc 31 ml/min Estimated GFR 46 L (59 - ) Glucose 142 H (65-110) mg/dL Lactic Acid 4.0 H 2.6 H (0.7-2.0) mmol/L Calcium 9.4 (8.4-10.2) mg/dL Total Bilirubin 0.5 (0.2-1.3) mg/dL AST 37 (17-59) U/L ALT 32 (6-50) U/L Alkaline Phosphatase 56 (38-126) U/L C-Reactive Protein 5.1 H (<1.0) mg/dL Total Protein 8.0 (6.3-8.2) g/dL Albumin 4.5 (3.5-5.1) g/dL Urine Color (Yellow) Urine Appearance (Clear) Urine pH (5.0-9.0) Ur Specific [place] (1.001-1.035) Urine Protein (Negative) mg/dL Urine Glucose (UA) (Negative) mg/dL Urine Ketones (Negative) mg/dL Ur Blood (Man) (Negative) Urine Nitrate (Negative) Urine Bilirubin (Negative) Urine Urobilinogen (<2.0) mg/dL Leukocyte Esterase Rfl (Negative) BULL/UL Urine RBC (0-2) /hpf Urine WBC (0-3) /hpf Ur Squamous Epith Cells (Few) /hpf Urine Bacteria /hpf Urine Casts Influenza A (RT-PCR) Negative (Negative) Influenza B (RT-PCR) Negative (Negative) RSV (RT-PCR) Negative (Negative) SARS-CoV-2 RNA (RT-PCR) Positive A (Negative) 12/29/24 Range/Units 17:46 WBC (4.5-10.0) K/mm3 RBC (4.6-6.20) M/mm3 Hgb (14.0-18.0) g/dL Hct (42.0-52.0) % MCV (80-100) fl MCH (26-34) pg MCHC (32-36) g/dl RDW (11.5-14.5) % Plt Count (150-375) k/mm3 MPV (7.4-10.4) fl Immature Gran % (Auto) (0-0.5) % Neut % (Auto) (45.5-73.1) % Lymph % (Auto) (18.3-44.2) % [place] % (Auto) (2.6-8.5) % Eos % (Auto) (0-4.4) % Baso % (Auto) (0.2-1.2) % Lymph # (Auto) (0.9-3.2) K/mm3 [place] # (Auto) (0.1-0.6) K/mm3 Eos # (Auto) (0-0.3) K/mm3 Baso # (Auto) (0.0-0.1) K/mm3 Abs Immat Gran (auto) (0.00-0.031) K/mm3 Absolute Neuts (auto) (1.3-6.7) K/mm3 Absolute Nucleated RBC (0.0-0.012) K/mm3 Nucleated RBC % (0.0-0.2) % Sodium (137-145) mmol/L Potassium (3.4-5.0) mmol/L Chloride (98-107) mmol/L Carbon Dioxide (22-30) mmol/L Anion Gap (4-12) mmol/L BUN (9-20) mg/dL Creatinine (0.7-1.3) mg/dL Estim Creat Clear Calc ml/min Estimated GFR (59 - ) Glucose (65-110) mg/dL Lactic Acid (0.7-2.0) mmol/L Calcium (8.4-10.2) mg/dL Total Bilirubin (0.2-1.3) mg/dL AST (17-59) U/L ALT (6-50) U/L Alkaline Phosphatase (38-126) U/L C-Reactive Protein (<1.0) mg/dL Total Protein (6.3-8.2) g/dL Albumin (3.5-5.1) g/dL Urine Color Yellow (Yellow) Urine Appearance Clear (Clear) Urine pH 5.0 (5.0-9.0) Ur Specific [place] 1.018 (1.001-1.035) Urine Protein 1+ H (Negative) mg/dL Urine Glucose (UA) Negative (Negative) mg/dL Urine Ketones 1+ H (Negative) mg/dL Ur Blood (Man) Negative (Negative) Urine Nitrate Negative (Negative) Urine Bilirubin Negative (Negative) Urine Urobilinogen 0.2 (<2.0) mg/dL Leukocyte Esterase Rfl Negative (Negative) BULL/UL Urine RBC 0-2 (0-2) /hpf Urine WBC 0-5 (0-3) /hpf Ur Squamous Epith Cells None seen (Few) /hpf Urine Bacteria None seen /hpf Urine Casts 0-2 Influenza A (RT-PCR) (Negative) Influenza B (RT-PCR) (Negative) RSV (RT-PCR) (Negative) SARS-CoV-2 RNA (RT-PCR) (Negative) Discharge Plan Discharge Clinical Impression: Pneumonia Patient Disposition: Still a Patient Condition: Stable Patient Language: Com[place]an Prescriptions: No Action atorvastatin 40 mg tablet 40 mg PO DAILY metformin 500 mg tablet 500 mg PO BID clopidogrel 75 mg tablet 75 mg PO DAILY ferrous sulfate 325 mg (65 mg iron) tablet 325 mg PO BID omeprazole 20 mg capsule,delayed release(DR/EC) 20 mg PO BID aspirin 81 mg Tablet 81 mg PO DAILY gabapentin 100 mg capsule 200 mg PO TID fluticasone propionate 50 mcg/actuation spray,suspension 2 spray INTRANASAL DAILY cholecalciferol (vitamin D3) [Vitamin D3] 50 mcg (2,000 unit) Capsule 50 mcg PO BID ascorbic acid (vitamin C) 500 mg Capsule 500 mg PO DAILY acetaminophen 500 mg Tablet 500 mg PO BID Follow-up/Referrals: Kev,Prince Metcalf [Other]
--- NOTE | 2024-12-29 16:34 | PC.NURSE ---
patient attempted to give urine and missed the urinal, will attempt to get urine again.
[2024-12-29] MEDS: cefTRIAXone 2 GM/NS 100 ML 2 GM/100 ML BAG IVPB (17:03)
[2024-12-29 17:31] LABS: Lactic Acid Reflex 2.6 mmol/L (0.7-2.0)
[2024-12-29 17:34] LABS: CRP 5.1 mg/dL (<1.0)
[2024-12-29] MEDS: AZITHROMYCIN 500 MG/NS 250 ML 500 MG/250 ML BAG 250 MG IVPB (17:46)
[2024-12-29 17:55] LABS: Influenza A QL RT-PCR Negative (Negative); Influenza B QL RT-PCR Negative (Negative); RSV RNA, RT-PCR Negative (Negative); SARS-CoV-2 RNA PCR Positive (Negative)
[2024-12-29 17:57] LABS: Add Urine Microscopic? YES; Appearance Urine Clear (Clear); Bacteria Urine None Seen /hpf; Bilirubin Urine Negative (Negative); Blood Urine Negative (Negative); Color Urine Yellow (Yellow); Glucose Urine UA Negative (Negative); Ketones Urine 1+ mg/dL (Negative); Leukocyte Esterase Ur Negative LEU/UL (Negative); Nitrate Urine Negative (Negative); Non Pathogenic Casts 0-2; Protein Urine 1+ mg/dL (Negative); RBC Urine 0-2 /hpf (0-2); Specific Grav Ur 1.018 (1.001-1.035); Squamous Epithelial Cell Urine None Seen /hpf (Few); Urobilinogen Urine 0.2 mg/dL (<2.0); WBC Urine 0-5 /hpf (0-3)
[2024-12-29 19:16] LABS: Reflex Lactic Acid Yes or No Add Lactic
--- NOTE | 2024-12-29 19:58 | ADMGEN ---
This patient, Meir Amezquita, was admitted to Medical Room 249-01. Patient/family oriented to hospital policies and general routines including ID bracelet, bed and alarms, visiting hours, pain management, procedures, bathroom and other care routines, personal items, smoking policy, room service/diet, and visiting hours. Information on how to activate the Rapid Response Team has been discussed. Patient/Family are encouraged to report perceived risks to care and to ask questions if they do not understand what they are told or what they should do.
[2024-12-29 21:18] LABS: Lactic Acid 2.9 mmol/L (0.7-2.0)
[2024-12-29 23:08] LABS: INR 1.1; Prothrombin Time 14.4 Seconds (11.1-14.7)
[2024-12-29] MEDS: ACETAMINOPHEN 500 MG TABLET 1000 MG PO (23:11)
[2024-12-29] MEDS: dexAMETHasone SOD PHOS INJ 10 MG/ML 1 ML VIAL 6 MG IV PUSH (23:11)
[2024-12-29] MEDS: PANTOPRAZOLE 40 MG TABLET PO (23:11)
[2024-12-30] VITALS (15 sets, daily range): BP systolic 111–140; BP diastolic 50–67; PULSE 61–90; RESP 14–20; TEMP 36.6–37; O2SAT 91–96
[2024-12-30] MEDS: REMDESIVIR 200 MG/NS 250 ML 200 MG/250 ML BAG 250 MG IVPB (00:47)
[2024-12-30 04:49] LABS: Hematocrit 32.7 % (42.0-52.0); Hemoglobin 10.6 g/dL (14.0-18.0); Mean Corpuscular HGB Conc 32.4 g/dl (32-36); Mean Corpuscular Hemoglobin 29.8 pg (26-34); Mean Corpuscular Volume 91.9 fl (80-100); Mean Platelet Volume 9.5 fl (7.4-10.4); Platelet Count Result 201 k/mm3 (150-375); Red Blood Count 3.56 M/mm3 (4.6-6.20); Red Cell Distribution Width 14.6 % (11.5-14.5); White Blood Count 5.8 K/mm3 (4.5-10.0)
[2024-12-30 05:04] LABS: Sodium 138 mmol/L (137-145)
[2024-12-30 05:12] LABS: Anion Gap 10 mmol/L (4-12); Blood Urea Nitrogen 13 mg/dL (9-20); Calcium 8.5 mg/dL (8.4-10.2); Carbon Dioxide 20 mmol/L (22-30); Chloride 108 mmol/L (98-107); Estimated CRCL calculation 36 ml/min; Estimated Glomerular Filt Rate 54; Glucose 195 mg/dL (65-110); Potassium 4.5 mmol/L (3.4-5.0)
[2024-12-30 05:16] LABS: Erythrocyte Sedimentation Rate 51 mm/hr (0-20)
[2024-12-30 05:20] LABS: CRP 12.1 mg/dL (<1.0)
--- NOTE | 2024-12-30 06:58 | P.HP_ITS ---
H&P: HPI History of Present Illness Date/Time: 12/30/24 06:58 Chief Complaint: Weakness and chills Narrative: 84-year-old male with a past medical history of essential hypertension, AAA stent, peripheral vascular disease, 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 Patient reports he took a home COVID test which came back positive today. His reported to nursing staff that the patient acutely became ill on the with generalized weakness and fatigue. The patient reports that he had been having some nasal congestion but takes some Flonase at home. He was noted to mild cough at the time my evaluation but he states that he has not been coughing that bad. But he denies sore throat [place] but then complained to nursing staff there is having sore throat due to cough. He denies any chest pain or shortness of breath. He denies any recent ill contacts. He reports that he has received his COVID vaccines. He has a COVID previously in 2021. He reported subjective chills but was afebrile on arrival to the ER. He reports that he was so weak he could not get out of bed on his own. He states that he feels like he is not emptying his bladder all the way which is a new finding. However bladder scan performed at bedside demonstrated the patient had less than 50 mL of urine. He reports that he has been drinking plenty of fluids but labs demonstrated acute kidney injury in the patient's mucous membranes were dry. Review of Systems 2 Review of Systems: 12 systems were reviewed with pertinent positives and negatives per HPI. Except as documented in the HPI, all other systems were reviewed and are negative. [facility] Past Medical History Medical History (Updated 12/30/24 @ 07:13 by Madhuri Cee DO) CKD (chronic kidney disease) stage 3, GFR 30-59 ml/min Iron deficiency anemia Irritable bowel syndrome with diarrhea GERD (gastroesophageal reflux disease) Hyperlipidemia Essential hypertension Type 2 diabetes mellitus Coronary artery disease Surgical History Surgical History (Updated 12/30/24 @ 07:13 by Madhuri Cee DO) Status post correction of deviated nasal septum Status post cataract extraction of both eyes with insertion of intraocular lens History of bowel resection Due to colon cancer June 2022 History of coronary artery stent placement 1 stent placed 1994 History of four vessel coronary artery bypass graft (~09/2021) History of endovascular stent graft for abdominal aortic aneurysm (~2018) History of carotid endarterectomy (~2021) Family History Family History (Updated 12/29/24 @ 20:20 by Ciera Vega RN) Mother Congestive heart failure Father Cancer Social History Social History (Updated 12/30/24 @ 08:01 by Madhuri Cee DO) Social History: The patient lives with his of 50 years. He smoked a pack of cigarettes per day for about 55 years. He is a retired maintenance mechanic elevators. Code status: DNR/DNI per patient request Surrogate decision maker: Smoking packs per day: 1 Smoking cigarettes per day: 20.0 Years smoked: 55 Smoking pack-years: 55.00 Smoking status: Former smoker Alcohol intake: former Substance use: never Substance use type: does not use Do You Feel Safe in your Home?: Yes Lack of Transportation: No Lack of Food: Never True Current Housing: I Have Housing Concerned About Future Housing: No Difficulty Paying Gas/Electric Bills: No Difficulty Paying for Meds: No Currently Unemployed: No Education: High School Diploma/GED Difficulty w/ Childcare or Family Care: No Living arrangements: with family Spiritual care concerns: No Meds Home Medications and Allergies Home Medications ?Medication ?Instructions ?Recorded ?Confirmed ?Type ascorbic acid (vitamin C) 500 mg 500 mg PO DAILY 05/25/22 12/29/24 History capsule aspirin 81 mg tablet 81 mg PO DAILY 05/25/22 12/29/24 History atorvastatin 40 mg tablet 40 mg PO DAILY 05/25/22 12/29/24 History cholecalciferol (vitamin D3) 50 50 mcg PO DAILY 05/25/22 12/29/24 History mcg (2,000 unit) capsule (Vitamin D3) clopidogrel 75 mg tablet 75 mg PO DAILY 05/25/22 12/29/24 History ferrous sulfate 325 mg (65 mg 325 mg PO BID 05/25/22 12/29/24 History iron) tablet fluticasone propionate 50 2 spray intranasal DAILY 05/25/22 12/29/24 History mcg/actuation nasal spray,suspension metformin 500 mg tablet 500 mg PO BID 05/25/22 12/29/24 History omeprazole 20 mg capsule,delayed 20 mg PO BID 05/25/22 12/29/24 History release acetaminophen 500 mg tablet 1,000 mg PO BID 07/27/23 12/29/24 History amlodipine 2.5 mg tablet 2.5 mg PO DAILY 12/29/24 12/29/24 History glimepiride 2 mg tablet 2 mg PO DAILY 12/29/24 12/29/24 History magnesium oxide 400 mg (241.3 mg 400 mg PO DAILY 12/29/24 12/29/24 History magnesium) tablet Allergies Allergy/AdvReac Type Severity Reaction Status Date / Time iohexol (From contrast - CT, Allergy Chest Pain Verified 12/29/24 20:59 X-RAY) codeine AdvReac Intermediate Nausea and Verified 12/29/24 20:59 Vomiting Vital Signs Vital Signs - 24 hr 12/29/24 14:38 12/29/24 14:42 12/29/24 14:46 Temperature 98.8 F Pulse Rate 102 H Respiratory Rate 28 H Blood Pressure 185/67 H Pulse Oximetry 92 92 Oxygen Delivery Room Air Nasal Cannula Oxygen Flow Rate 2 12/29/24 15:32 12/29/24 16:19 12/29/24 17:15 Temperature Pulse Rate 99 102 H 98 Respiratory Rate 25 H 18 26 H Blood Pressure 148/71 H 148/62 H Pulse Oximetry 95 95 95 Oxygen Delivery Oxygen Flow Rate 12/29/24 17:49 12/29/24 17:52 12/29/24 18:32 Temperature Pulse Rate 99 97 98 Respiratory Rate 19 24 H 19 Blood Pressure 117/61 117/61 127/71 Pulse Oximetry 95 96 94 Oxygen Delivery Oxygen Flow Rate 12/29/24 19:02 12/29/24 19:15 12/29/24 20:00 Temperature Pulse Rate 95 99 Respiratory Rate 23 H 21 H Blood Pressure 134/55 L Pulse Oximetry 95 99 99 Oxygen Delivery Nasal Cannula Oxygen Flow Rate 2.5 12/29/24 20:56 12/30/24 00:12 12/30/24 00:39 Temperature 99.3 F 98.6 F Pulse Rate 93 90 89 Respiratory Rate 14 14 Blood Pressure 151/74 H 121/50 L Pulse Oximetry 99 96 Oxygen Delivery Oxygen Flow Rate 12/30/24 00:48 12/30/24 04:00 12/30/24 06:00 Temperature 97.8 F Pulse Rate 65 72 Respiratory Rate 14 Blood Pressure 140/67 Pulse Oximetry 96 95 Oxygen Delivery Nasal Cannula Oxygen Flow Rate 1.5 Exam 2 Narrative: Weight 68 kg BMI 24.2 Const: Other: Acutely ill-appearing, frail but well-nourished, elderly HENMT: Other: Mucous membranes are dry, upper dentures in place, patient has a portion of his own teeth in the lower jaw, head is normocephalic atraumatic Eyes: Other: Pupils are equal and reactive, positive conjunctival pallor, no scleral icterus, lens replacements noted bilaterally Neck: Other: No JVD, trachea midline Resp: Other: Coarse crackles throughout the left lung, faint crackles at the right lung base, no increased work of breathing Cardio: Other: Regular rate, irregular rhythm, 2+ bilateral radial pedal pulses, no JVD GI: Other: Soft, nontender, nondistended, positive bowel sounds Skin: Other: Warm to touch, non jaundice, mild pallor Neuro: Other: Alert orient x4, speech is clear, no facial asymmetry, moves all extremities equally Extrem: Other: No clubbing, cyanosis or edema, socks were not removed to do foot exam Psych: Other: Pleasant and cooperative, appropriate mood and affect, judgment and insight intact H&P: Results Labs Labs: Laboratory Tests 12/30/24 04:37 12/30/24 04:37 12/29/24 12/29/24 12/29/24 14:51 16:56 17:05 WBC 7.2 RBC 4.06 L Hgb 11.8 L Hct 37.2 L MCV 91.6 MCH 29.1 MCHC 31.7 L RDW 14.7 H Plt Count 228 MPV 9.6 Immature Gran % (Auto) 0.3 Neut % (Auto) 73.5 H Lymph % (Auto) 11.2 L [place] % (Auto) 14.4 H Eos % (Auto) 0.0 Baso % (Auto) 0.6 Lymph # (Auto) 0.81 L [place] # (Auto) 1.0 H Eos # (Auto) 0.0 Baso # (Auto) 0.0 Abs Immat Gran (auto) 0.02 Absolute Neuts (auto) 5.3 Absolute Nucleated RBC 0.000 Nucleated RBC % 0.0 ESR PT INR Sodium 136 L Potassium 4.8 Chloride 101 Carbon Dioxide 20 L Anion Gap 15 H BUN 18 Creatinine 1.48 H Estim Creat Clear Calc 31 Estimated GFR 46 L Glucose 142 H Lactic Acid 4.0 H 2.6 H Calcium 9.4 Ferritin Total Bilirubin 0.5 AST 37 ALT 32 Alkaline Phosphatase 56 C-Reactive Protein 5.1 H Total Protein 8.0 Albumin 4.5 Urine Color Urine Appearance Urine pH Ur Specific [place] Urine Protein Urine Glucose (UA) Urine Ketones Ur Blood (Man) Urine Nitrate Urine Bilirubin Urine Urobilinogen Leukocyte Esterase Rfl Urine RBC Urine WBC Ur Squamous Epith Cells Urine Bacteria Urine Casts Influenza A (RT-PCR) Negative Influenza B (RT-PCR) Negative RSV (RT-PCR) Negative SARS-CoV-2 RNA (RT-PCR) Positive A 12/29/24 12/29/24 12/29/24 17:46 20:57 22:52 WBC RBC Hgb Hct MCV MCH MCHC RDW Plt Count MPV Immature Gran % (Auto) Neut % (Auto) Lymph % (Auto) [place] % (Auto) Eos % (Auto) Baso % (Auto) Lymph # (Auto) [place] # (Auto) Eos # (Auto) Baso # (Auto) Abs Immat Gran (auto) Absolute Neuts (auto) Absolute Nucleated RBC Nucleated RBC % ESR PT 14.4 INR 1.1 Sodium Potassium Chloride Carbon Dioxide Anion Gap BUN Creatinine Estim Creat Clear Calc Estimated GFR Glucose Lactic Acid 2.9 H Calcium Ferritin Total Bilirubin AST ALT Alkaline Phosphatase C-Reactive Protein Total Protein Albumin Urine Color Yellow Urine Appearance Clear Urine pH 5.0 Ur Specific [place] 1.018 Urine Protein 1+ H Urine Glucose (UA) Negative Urine Ketones 1+ H Ur Blood (Man) Negative Urine Nitrate Negative Urine Bilirubin Negative Urine Urobilinogen 0.2 Leukocyte Esterase Rfl Negative Urine RBC 0-2 Urine WBC 0-5 Ur Squamous Epith Cells None seen Urine Bacteria None seen Urine Casts 0-2 Influenza A (RT-PCR) Influenza B (RT-PCR) RSV (RT-PCR) SARS-CoV-2 RNA (RT-PCR) 12/30/24 04:37 WBC 5.8 RBC 3.56 L Hgb 10.6 L Hct 32.7 L MCV 91.9 MCH 29.8 MCHC 32.4 RDW 14.6 H Plt Count 201 MPV 9.5 Immature Gran % (Auto) Neut % (Auto) Lymph % (Auto) [place] % (Auto) Eos % (Auto) Baso % (Auto) Lymph # (Auto) [place] # (Auto) Eos # (Auto) Baso # (Auto) Abs Immat Gran (auto) Absolute Neuts (auto) Absolute Nucleated RBC Nucleated RBC % ESR 51 H PT INR Sodium 138 Potassium 4.5 Chloride 108 H Carbon Dioxide 20 L Anion Gap 10 BUN 13 D Creatinine 1.28 Estim Creat Clear Calc 36 Estimated GFR 54 L Glucose 195 H Lactic Acid Calcium 8.5 Ferritin 44.20 Total Bilirubin AST ALT Alkaline Phosphatase C-Reactive Protein 12.1 H Total Protein Albumin Urine Color Urine Appearance Urine pH Ur Specific [place] Urine Protein Urine Glucose (UA) Urine Ketones Ur Blood (Man) Urine Nitrate Urine Bilirubin Urine Urobilinogen Leukocyte Esterase Rfl Urine RBC Urine WBC Ur Squamous Epith Cells Urine Bacteria Urine Casts Influenza A (RT-PCR) Influenza B (RT-PCR) RSV (RT-PCR) SARS-CoV-2 RNA (RT-PCR) Impressions Chest X-Ray 12/29/24 15:39 Impression: 1: Bilateral airspace disease, compatible with pneumonia. EKG: Was poor tracing demonstrating sinus tachycardia for tree Keila block with frequent premature ventricular complexes rate 100 into pulmonary disease pattern left anterior fascicular block moderate ST depression All imaging and EKGs personally reviewed and interpreted. And unless stated otherwise agree with radiologic and cardiology interpretation. Assessment and Plan Assessment and plan (1) Pneumonia due to COVID-19 virus: Code(s): U07.1 - COVID-19; J12.82 - Pneumonia due to coronavirus disease 2018 Status: Acute (2) Type 2 diabetes mellitus with hyperglycemia, without long-term current use of insulin: Code(s): E11.65 - Type 2 diabetes mellitus with hyperglycemia Status: Acute (3) Acute kidney injury superimposed on CKD: Code(s): N17.9 - Acute kidney failure, unspecified; N18.9 - Chronic kidney disease, unspecified Status: Acute Plan Patient has pneumonia due to COVID is on oxygen low no documented episodes of hypoxia in the ER documentation. Will wean oxygen as tolerated. Patient is at high risk for secondary complications of COVID in subsequently will place patient on both Remdesivir and Decadron per protocol. Will check inflammatory markers CBC and electrolyte panel as well as hepatic function panel per protocol. The the patient does appear intravascularly volume depleted with dry mucous membranes and acute kidney injury on chronic kidney disease. Will give the patient a 2 L in fluid bolus and encourage oral fluid intake. Will repeat electrolyte panel in a.m.. Patient does have type 2 diabetes mellitus and has some mild hyperglycemia on labs. Hold oral hypoglycemics for the short term and will place patient on sliding the scale insulin with Accu-Cheks a.c. HS as well as hypoglycemia protocol. Given his prior history of smoking and possible component of underlying lung disease will add albuterol inhaler inhaler q.6 hours. Will request PT and OT evaluation given patient's new decreased mobility. Patient has been admitted as observation status. Quality VTE Prophylaxis VTE prophylaxis: mechanical ordered (SCDs) Hospitalist [facility] Advance Care Plan I have confirmed that the patient's Advanced Care Plan is present, code status is documented, or surrogate decision maker is listed in patient medical record.: Yes Medication Reconciliation I have utilized all available resources to obtain, update and review the patients current medications (includes all prescriptions, OTC, herbals, cannabis, and nutritional supplements).: Yes
[2024-12-30 08:16] LABS: Glucose Point of Care 203 mg/dl (65-105)
--- NOTE | 2024-12-30 08:38 | PM.IMPN ---
Progress Note: A&P Assessment and Plan (1) Pneumonia due to COVID-19 virus: Code(s): U07.1 - COVID-19; J12.82 - Pneumonia due to coronavirus disease 2018 Status: Acute Assessment and Plan: CXR: Bilateral airspace disease, compatible with pneumonia. Complicating Factors: COVID19 + Viral PCR: COVID+, negative for Flu/RSV Consider ordering legionella, mycoplasma and pneumococcal Monitor vital signs, I&Os, neuro status and patient is a fall risk Follow WBC, serum electrolytes, temperature curves and cultures Send sputum cultures Oxygen via NC, 1.5L; wean as tolerated. Keep SpO2 greater than 88% Gentle IV fluid resuscitation Ceftriaxone 1 gram IV q24H and Azithromycin 500mg IV q24H (2) Type 2 diabetes mellitus with hyperglycemia, without long-term current use of insulin: Code(s): E11.65 - Type 2 diabetes mellitus with hyperglycemia Status: Acute Assessment and Plan: Hypoglycemia protocol on hold for now POC blood glucose ACHS Home medication - Metformin, hold Correct regimen ordered - SSI A1C 6.6% (3) Acute kidney injury superimposed on CKD: Code(s): N17.9 - Acute kidney failure, unspecified; N18.9 - Chronic kidney disease, unspecified Status: Acute Assessment and Plan: In ED: Creatinine 1.48, GFR 46 , BUN: 18 IV Fluids: Trend renal function Trend electrolytes, correct as needed 12/30: Cr 1.28, BUN 13 (4) Essential hypertension: Code(s): I10 - Essential (primary) hypertension Status: Acute Assessment and Plan: Patient's blood pressure was reviewed on 12/29 Blood pressure remains well controlled. Will continue current medications. Amlodipine 2.5mg daily (5) GERD (gastroesophageal reflux disease): Code(s): K21.9 - Gastro-esophageal reflux disease without esophagitis Status: Acute Assessment and Plan: Protonix 40mg PO (6) Hyperlipidemia: Code(s): E78.5 - Hyperlipidemia, unspecified Status: Acute Assessment and Plan: Continue atorvastatin 40mg PO (7) Coronary artery disease: Code(s): I25.10 - Atherosclerotic heart disease of [place] coronary artery without angina pectoris Status: Acute Assessment and Plan: Continue Plavix and aspirin (8) Iron deficiency anemia: Code(s): D50.9 - Iron deficiency anemia, unspecified Status: Acute Assessment and Plan: - Hgb: 11.8 - transfuse if <7 - trend H&H - Stable Subjective Date/time seen: 12/30/24 08:38 Interval history: 84-year-old male with a past medical history of essential hypertension, AAA stent, peripheral vascular disease, 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 12/30/2024 Patient sitting in bed at time of examination. Denies any chest pain, SOB, n/v, abdominal pain at this time. Not on oxygen at this time, physical exam is benign. Have not worked with PT/OT yet but pt states he has walked to the bathroom without any difficulty, shortness of breath or weakness. Cr improved today, down from 1.48 -> 1.28 today.. Review of Systems Review of Systems: 12 systems were reviewed with pertinent positives and negatives per HPI. Except as documented in the HPI, all other systems were reviewed and are negative. Exam Const: Other: Acutely ill-appearing, frail but well-nourished, elderly HENMT: Other: Mucous membranes are dry, upper dentures in place, patient has a portion of his own teeth in the lower jaw, head is normocephalic atraumatic Eyes: Other: Pupils are equal and reactive, positive conjunctival pallor, no scleral icterus, lens replacements noted bilaterally Neck: Other: No JVD, trachea midline Resp: Other: Coarse crackles throughout the left lung, faint crackles at the right lung base, no increased work of breathing Cardio: Other: Regular rate, irregular rhythm, 2+ bilateral radial pedal pulses, no JVD GI: Other: Soft, nontender, nondistended, positive bowel sounds Skin: Other: Warm to touch, non jaundice, mild pallor Neuro: Other: Alert orient x4, speech is clear, no facial asymmetry, moves all extremities equally Extrem: Other: No clubbing, cyanosis or edema, socks were not removed to do foot exam Psych: Other: Pleasant and cooperative, appropriate mood and affect, judgment and insight intact Objective Data Vital Signs Vital Signs: Vital Signs - 24 hr 12/29/24 14:38 12/29/24 14:42 12/29/24 14:46 Temperature 98.8 F Pulse Rate 102 H Respiratory Rate 28 H Blood Pressure 185/67 H Pulse Oximetry 92 92 Oxygen Delivery Room Air Nasal Cannula Oxygen Flow Rate 2 12/29/24 15:32 12/29/24 16:19 12/29/24 17:15 Temperature Pulse Rate 99 102 H 98 Respiratory Rate 25 H 18 26 H Blood Pressure 148/71 H 148/62 H Pulse Oximetry 95 95 95 Oxygen Delivery Oxygen Flow Rate 12/29/24 17:49 12/29/24 17:52 12/29/24 18:32 Temperature Pulse Rate 99 97 98 Respiratory Rate 19 24 H 19 Blood Pressure 117/61 117/61 127/71 Pulse Oximetry 95 96 94 Oxygen Delivery Oxygen Flow Rate 12/29/24 19:02 12/29/24 19:15 12/29/24 20:00 Temperature Pulse Rate 95 99 Respiratory Rate 23 H 21 H Blood Pressure 134/55 L Pulse Oximetry 95 99 99 Oxygen Delivery Nasal Cannula Oxygen Flow Rate 2.5 12/29/24 20:56 12/30/24 00:12 12/30/24 00:39 Temperature 99.3 F 98.6 F Pulse Rate 93 90 89 Respiratory Rate 14 14 Blood Pressure 151/74 H 121/50 L Pulse Oximetry 99 96 Oxygen Delivery Oxygen Flow Rate 12/30/24 00:48 12/30/24 04:00 12/30/24 06:00 Temperature 97.8 F Pulse Rate 65 72 Respiratory Rate 14 Blood Pressure 140/67 Pulse Oximetry 96 95 Oxygen Delivery Nasal Cannula Oxygen Flow Rate 1.5 Intake/Output Intake/Output: Intake & Output 12/27/24 12/28/24 12/29/24 12/30/24 23:59 23:59 23:59 23:59 Intake Total 1350 1450 Output Total 850 Balance 1350 600 Meds/Results Medications: Active Medications Generic Name Dose Route Start Last Admin Trade Name Freq PRN Reason Stop Dose Admin Acetaminophen 1,000 mg 12/29/24 22:45 12/29/24 23:11 Acetaminophen 500 Mg Tablet PO 1,000 mg BID SHERYL Administration Acetaminophen 500 mg 12/29/24 22:29 Acetaminophen 500 Mg Tablet PO Q6H PRN Mild Pain (1-3) or Fever Albuterol 4 puff 12/30/24 08:00 Albuterol Sulfate (*Sp) Aerosol 1 Puff INHALATION Q6HRT [facility] Amlodipine Besylate 2.5 mg 12/30/24 09:00 Amlodipine Besylate 2.5 Mg Tablet PO DAILY [facility] Ascorbic Acid 500 mg 12/30/24 09:00 Ascorbic Acid 500 Mg Tablet PO DAILY [facility] Aspirin 81 mg 12/30/24 09:00 Aspirin 81 Mg Chewable Tablet PO DAILY [facility] Atorvastatin Calcium 40 mg 12/30/24 09:00 Atorvastatin 40 Mg Tablet PO DAILY [facility] Benzocaine 1 lozenge 12/30/24 04:06 Benzocaine/Menthol (*Bkc) 18 Ea Lozenge PO PRN PRN Sore Throat Clopidogrel Bisulfate 75 mg 12/30/24 09:00 Clopidogrel Bisulfate 75 Mg Tablet PO DAILY [facility] Dexamethasone Sodium Phosphate 6 mg 12/29/24 22:35 12/29/24 23:11 Dexamethasone Sod Phos Inj 10 Mg/Ml 1 Ml Vial IV PUSH 01/07/25 21:01 6 mg HS SHERYL Administration Dextrose 12.5 gm 12/29/24 22:33 Dextrose 50% 25 Gm/50 Ml Syringe IV PUSH PRN PRN Hypoglycemia Protocol Ferrous Sulfate 325 mg 12/30/24 09:00 Ferrous Sulfate [address] PO BID [facility] Fluticasone Propionate 2 spray 12/30/24 09:00 Fluticasone Propionate 0.05% Na Spr 16 Gm Btl (*Bkc) NASAL DAILY [facility] Glucagon 1 mg 12/29/24 22:33 Glucagon For Inj 1 Mg Vial IM PRN PRN Hypoglycemia Protocol Glucose 15 gm 12/29/24 22:33 Glucose Oral Gel 15 Gm Of Glucse In 37.5 Gm Tube PO PRN PRN Hypoglycemia Protocol Heparin Sodium (Porcine) 5,000 units 12/30/24 09:00 Heparin Sodium 5,000 Units/Ml Vial SUB-Q Q12HR [facility] Azithromycin 500 mg in 250 mls @ 250 mls/hr 12/29/24 18:00 12/29/24 18:56 Zithromax IVPB Infused Q24H SHERYL Infusion Dextrose 1,000 mls @ 100 mls/hr 12/29/24 22:33 Dextrose 5% 1,000 Ml IVPB PRN PRN Hypoglycemia Protocol Ceftriaxone Sodium 1 gm in 50 mls @ 100 mls/hr 12/30/24 17:00 Rocephin 1 Gm/Ns 50 Ml IVPB Q24H [facility] Remdesivir 100 mg in 250 mls @ 250 mls/hr 12/30/24 22:00 IVPB 01/02/25 22:59 Q24H [facility] Insulin Aspart 2 - 5 units 12/30/24 08:00 Insulin Aspart (*Bkc) 100 Units/Ml SUB-Q TIDWM [facility] Protocol Magnesium Oxide 400 mg 12/30/24 09:00 Magnesium Oxide 400 Mg Tablet PO DAILY [facility] Pantoprazole Sodium 40 mg 12/29/24 22:45 12/29/24 23:11 Pantoprazole 40 Mg Tablet PO 40 mg Q12HR [facility] Administration Vitamin D 2,000 units 12/30/24 09:00 Cholecalciferol 1,000 Units Tablet PO DAILY [facility] Radiology Results: ITS Impressions Chest X-Ray 12/29/24 15:39 Impression: 1: Bilateral airspace disease, compatible with pneumonia. Labs Labs: Laboratory Results - last 24 hr 12/29/24 12/29/24 12/29/24 14:51 16:56 17:05 WBC 7.2 RBC 4.06 L Hgb 11.8 L Hct 37.2 L MCV 91.6 MCH 29.1 MCHC 31.7 L RDW 14.7 H Plt Count 228 MPV 9.6 Immature Gran % (Auto) 0.3 Neut % (Auto) 73.5 H Lymph % (Auto) 11.2 L [place] % (Auto) 14.4 H Eos % (Auto) 0.0 Baso % (Auto) 0.6 Lymph # (Auto) 0.81 L [place] # (Auto) 1.0 H Eos # (Auto) 0.0 Baso # (Auto) 0.0 Abs Immat Gran (auto) 0.02 Absolute Neuts (auto) 5.3 Absolute Nucleated RBC 0.000 Nucleated RBC % 0.0 ESR PT INR Sodium 136 L Potassium 4.8 Chloride 101 Carbon Dioxide 20 L Anion Gap 15 H BUN 18 Creatinine 1.48 H Estim Creat Clear Calc 31 Estimated GFR 46 L Glucose 142 H POC Capillary Glucose Lactic Acid 4.0 H 2.6 H Calcium 9.4 Ferritin Total Bilirubin 0.5 AST 37 ALT 32 Alkaline Phosphatase 56 C-Reactive Protein 5.1 H Total Protein 8.0 Albumin 4.5 Urine Color Urine Appearance Urine pH Ur Specific [place] Urine Protein Urine Glucose (UA) Urine Ketones Ur Blood (Man) Urine Nitrate Urine Bilirubin Urine Urobilinogen Leukocyte Esterase Rfl Urine RBC Urine WBC Ur Squamous Epith Cells Urine Bacteria Urine Casts Influenza A (RT-PCR) Negative Influenza B (RT-PCR) Negative RSV (RT-PCR) Negative SARS-CoV-2 RNA (RT-PCR) Positive A 12/29/24 12/29/24 12/29/24 17:46 20:57 22:52 WBC RBC Hgb Hct MCV MCH MCHC RDW Plt Count MPV Immature Gran % (Auto) Neut % (Auto) Lymph % (Auto) [place] % (Auto) Eos % (Auto) Baso % (Auto) Lymph # (Auto) [place] # (Auto) Eos # (Auto) Baso # (Auto) Abs Immat Gran (auto) Absolute Neuts (auto) Absolute Nucleated RBC Nucleated RBC % ESR PT 14.4 INR 1.1 Sodium Potassium Chloride Carbon Dioxide Anion Gap BUN Creatinine Estim Creat Clear Calc Estimated GFR Glucose POC Capillary Glucose Lactic Acid 2.9 H Calcium Ferritin Total Bilirubin AST ALT Alkaline Phosphatase C-Reactive Protein Total Protein Albumin Urine Color Yellow Urine Appearance Clear Urine pH 5.0 Ur Specific [place] 1.018 Urine Protein 1+ H Urine Glucose (UA) Negative Urine Ketones 1+ H Ur Blood (Man) Negative Urine Nitrate Negative Urine Bilirubin Negative Urine Urobilinogen 0.2 Leukocyte Esterase Rfl Negative Urine RBC 0-2 Urine WBC 0-5 Ur Squamous Epith Cells None seen Urine Bacteria None seen Urine Casts 0-2 Influenza A (RT-PCR) Influenza B (RT-PCR) RSV (RT-PCR) SARS-CoV-2 RNA (RT-PCR) 12/30/24 12/30/24 04:37 08:09 WBC 5.8 RBC 3.56 L Hgb 10.6 L Hct 32.7 L MCV 91.9 MCH 29.8 MCHC 32.4 RDW 14.6 H Plt Count 201 MPV 9.5 Immature Gran % (Auto) Neut % (Auto) Lymph % (Auto) [place] % (Auto) Eos % (Auto) Baso % (Auto) Lymph # (Auto) [place] # (Auto) Eos # (Auto) Baso # (Auto) Abs Immat Gran (auto) Absolute Neuts (auto) Absolute Nucleated RBC Nucleated RBC % ESR 51 H PT INR Sodium 138 Potassium 4.5 Chloride 108 H Carbon Dioxide 20 L Anion Gap 10 BUN 13 D Creatinine 1.28 Estim Creat Clear Calc 36 Estimated GFR 54 L Glucose 195 H POC Capillary Glucose 203 H Lactic Acid Calcium 8.5 Ferritin 44.20 Total Bilirubin AST ALT Alkaline Phosphatase C-Reactive Protein 12.1 H Total Protein Albumin Urine Color Urine Appearance Urine pH Ur Specific [place] Urine Protein Urine Glucose (UA) Urine Ketones Ur Blood (Man) Urine Nitrate Urine Bilirubin Urine Urobilinogen Leukocyte Esterase Rfl Urine RBC Urine WBC Ur Squamous Epith Cells Urine Bacteria Urine Casts Influenza A (RT-PCR) Influenza B (RT-PCR) RSV (RT-PCR) SARS-CoV-2 RNA (RT-PCR) Quality VTE Prophylaxis VTE prophylaxis: mechanical ordered (SCDs)
[2024-12-30] MEDS: FERROUS SULFATE 325 MG TABLET DR PO ×2 (08:59→16:14)
[2024-12-30] MEDS: ASPIRIN 81 MG CHEWABLE TABLET PO (08:59)
[2024-12-30] MEDS: CHOLECALCIFEROL 1,000 UNITS TABLET 2000 UNITS PO (09:00)
[2024-12-30] MEDS: ACETAMINOPHEN 500 MG TABLET 1000 MG PO ×2 (09:00→16:13)
[2024-12-30] MEDS: HEPARIN SODIUM 5,000 UNITS/ML VIAL 5000 UNITS SUB-Q ×2 (09:00→20:27)
[2024-12-30] MEDS: PANTOPRAZOLE 40 MG TABLET PO ×2 (09:00→20:27)
[2024-12-30] MEDS: ATORVASTATIN 40 MG TABLET PO (09:00)
[2024-12-30] MEDS: ASCORBIC ACID 500 MG TABLET PO (09:00)
[2024-12-30] MEDS: amLODIPine BESYLATE 2.5 MG TABLET PO (09:00)
[2024-12-30] MEDS: INSULIN ASPART (*BKC) 100 UNITS/ML SUB-Q ×3 (09:02→17:04)
[2024-12-30] MEDS: CLOPIDOGREL BISULFATE 75 MG TABLET PO (09:09)
[2024-12-30] MEDS: FLUTICASONE PROPIONATE 0.05% NA SPR 16 GM BTL (*BKC) 2 SPRAY NASAL (09:16)
[2024-12-30] MEDS: MAGNESIUM OXIDE 400 MG TABLET PO (09:18)
[2024-12-30] MEDS: ALBUTEROL SULFATE (*SP) AEROSOL 1 PUFF 4 PUFF INHALATION ×3 (09:38→20:06)
[2024-12-30 09:47] LABS: Hemoglobin A1C 6.6 % (<5.7)
[2024-12-30 12:04] LABS: Glucose Point of Care 216 mg/dl (65-105)
[2024-12-30] MEDS: AZITHROMYCIN 500 MG/NS 250 ML 500 MG/250 ML BAG 250 MG IVPB (17:03)
[2024-12-30 18:28] LABS: Glucose Point of Care 227 mg/dl (65-105)
[2024-12-30 20:04] LABS: Glucose Point of Care 207 mg/dl (65-105)
[2024-12-30] MEDS: dexAMETHasone SOD PHOS INJ 10 MG/ML 1 ML VIAL 6 MG IV PUSH (20:26)
[2024-12-30] MEDS: REMDESIVIR 100 MG/NS 250 ML 100 MG/250 ML BAG 250 MG IVPB (20:27)
[2024-12-31] VITALS (7 sets, daily range): BP systolic 146; BP diastolic 83; PULSE 62–85; RESP 16–18; TEMP 36.9; O2SAT 95–98
[2024-12-31] MEDS: ALBUTEROL SULFATE (*SP) AEROSOL 1 PUFF 4 PUFF INHALATION ×2 (02:22→08:28)
[2024-12-31 05:37] LABS: Alanine Aminotransferase 26 U/L (6-50); Albumin Level 3.5 g/dL (3.5-5.1); Alkaline Phosphatase 45 U/L (38-126); Aspartate Amino Transferase 36 U/L (17-59); Bilirubin,Total 0.2 mg/dL (0.2-1.3)
[2024-12-31 06:16] LABS: INR 1.1; Prothrombin Time 14.8 Seconds (11.1-14.7)
--- NOTE | 2024-12-31 07:18 | P.PNIM_ITS ---
Progress Note: A&P Assessment and Plan (1) Pneumonia due to COVID-19 virus: Code(s): U07.1 - COVID-19; J12.82 - Pneumonia due to coronavirus disease 2018 Status: Acute Assessment and Plan: * CXR: Bilateral airspace disease, compatible with pneumonia. * Complicating Factors: COVID19 + * Viral PCR: COVID+, negative for Flu/RSV * Consider ordering legionella, mycoplasma and pneumococcal * Monitor vital signs, I&Os, neuro status and patient is a fall risk * Follow WBC, serum electrolytes, temperature curves and cultures * Blood cultures: Prelim result negative * Gentle IV fluid resuscitation * Ceftriaxone 1 gram IV q24H and Azithromycin 500mg IV q24H (2) Type 2 diabetes mellitus with hyperglycemia, without long-term current use of insulin: Code(s): E11.65 - Type 2 diabetes mellitus with hyperglycemia Status: Acute Assessment and Plan: * Hypoglycemia protocol on hold for now * POC blood glucose ACHS * Home medication - Metformin, hold * Correct regimen ordered - SSI * A1C 6.6% (3) Acute kidney injury superimposed on CKD: Code(s): N17.9 - Acute kidney failure, unspecified; N18.9 - Chronic kidney disease, unspecified Status: Acute Assessment and Plan: * In ED: Creatinine 1.48, GFR 46 , BUN: 18 * IV Fluids: * Trend renal function * Trend electrolytes, correct as needed * 12/30: Cr 1.28, BUN 13 (4) Essential hypertension: Code(s): I10 - Essential (primary) hypertension Status: Acute Assessment and Plan: * Patient's blood pressure was reviewed on 12/29 * Blood pressure remains well controlled. * Will continue current medications. * Amlodipine 2.5mg daily (5) GERD (gastroesophageal reflux disease): Code(s): K21.9 - Gastro-esophageal reflux disease without esophagitis Status: Acute Assessment and Plan: * Protonix 40mg PO (6) Hyperlipidemia: Code(s): E78.5 - Hyperlipidemia, unspecified Status: Acute Assessment and Plan: * Continue atorvastatin 40mg PO (7) Coronary artery disease: Code(s): I25.10 - Atherosclerotic heart disease of [place] coronary artery without angina pectoris Status: Acute Assessment and Plan: * Continue Plavix and aspirin (8) Iron deficiency anemia: Code(s): D50.9 - Iron deficiency anemia, unspecified Status: Acute Assessment and Plan: - Hgb: 11.8 - transfuse if <7 - trend H&H - Stable Subjective Date/time seen: 12/31/24 07:18 Interval history: 84-year-old male with a past medical history of essential hypertension, AAA stent, peripheral vascular disease, 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 12/31/2024 Patient sitting in bed at time of examination. Denies any chest pain, SOB, n/v, abdominal pain at this time. Review of Systems Review of Systems: 12 systems were reviewed with pertinent positives and negatives per HPI. Except as documented in the HPI, all other systems were reviewed and are negative. Exam Narrative: Weight 68 kg BMI 24.2 Const: Other: Acutely ill-appearing, frail but well-nourished, elderly HENMT: Other: Mucous membranes are dry, upper dentures in place, patient has a portion of his own teeth in the lower jaw, head is normocephalic atraumatic Eyes: Other: Pupils are equal and reactive, positive conjunctival pallor, no scleral icterus, lens replacements noted bilaterally Neck: Other: No JVD, trachea midline Resp: Other: Coarse crackles throughout the left lung, faint crackles at the right lung base, no increased work of breathing Cardio: Other: Regular rate, irregular rhythm, 2+ bilateral radial pedal pulses, no JVD GI: Other: Soft, nontender, nondistended, positive bowel sounds Skin: Other: Warm to touch, non jaundice, mild pallor Neuro: Other: Alert orient x4, speech is clear, no facial asymmetry, moves all extremities equally Extrem: Other: No clubbing, cyanosis or edema, socks were not removed to do foot exam Psych: Other: Pleasant and cooperative, appropriate mood and affect, judgment and insight intact Objective Data Vital Signs Vital Signs: Vital Signs - 24 hr 12/30/24 08:00 12/30/24 08:00 12/30/24 09:42 Temperature Pulse Rate 62 Respiratory Rate Blood Pressure Pulse Oximetry 95 Oxygen Delivery Room Air Room Air 12/30/24 09:44 12/30/24 12:00 12/30/24 14:00 Temperature 98.6 F Pulse Rate 61 73 63 Respiratory Rate 20 16 Blood Pressure 133/55 L Pulse Oximetry 91 Oxygen Delivery 12/30/24 16:00 12/30/24 19:55 12/30/24 20:01 Temperature Pulse Rate 66 63 Respiratory Rate 18 Blood Pressure Pulse Oximetry 93 Oxygen Delivery Room Air 12/30/24 20:01 12/30/24 20:14 12/30/24 20:18 Temperature 97.8 F Pulse Rate 66 63 Respiratory Rate 16 Blood Pressure 111/52 L Pulse Oximetry 92 93 Oxygen Delivery Room Air 12/31/24 00:03 12/31/24 02:22 12/31/24 04:01 Temperature Pulse Rate 63 66 85 Respiratory Rate 18 Blood Pressure Pulse Oximetry Oxygen Delivery 12/31/24 05:02 Temperature 98.5 F Pulse Rate 62 Respiratory Rate 16 Blood Pressure 146/83 H Pulse Oximetry 98 Oxygen Delivery Intake/Output Intake/Output: Intake & Output 12/28/24 12/29/24 12/30/24 12/31/24 23:59 23:59 23:59 23:59 Intake Total 1350 2410 200 Output Total 2150 500 Balance 1350 260 -300 Meds/Results Medications: Active Medications Generic Name Dose Route Start Last Admin Trade Name Freq PRN Reason Stop Dose Admin Acetaminophen 1,000 mg 12/29/24 22:45 12/30/24 16:13 Acetaminophen 500 Mg Tablet PO 1,000 mg BID SHERYL Administration Acetaminophen 500 mg 12/29/24 22:29 Acetaminophen 500 Mg Tablet PO Q6H PRN Mild Pain (1-3) or Fever Albuterol 4 puff 12/30/24 08:00 12/31/24 02:22 Albuterol Sulfate (*Sp) Aerosol 1 Puff INHALATION 4 puff Q6HRT SHERYL Administration Amlodipine Besylate 2.5 mg 12/30/24 09:00 12/30/24 09:00 Amlodipine Besylate 2.5 Mg Tablet PO 2.5 mg DAILY SHERYL Administration Ascorbic Acid 500 mg 12/30/24 09:00 12/30/24 09:00 Ascorbic Acid 500 Mg Tablet PO 500 mg DAILY SHERYL Administration Aspirin 81 mg 12/30/24 09:00 12/30/24 08:59 Aspirin 81 Mg Chewable Tablet PO 81 mg DAILY SHERYL Administration Atorvastatin Calcium 40 mg 12/30/24 09:00 12/30/24 09:00 Atorvastatin 40 Mg Tablet PO 40 mg DAILY SHERYL Administration Benzocaine 1 lozenge 12/30/24 04:06 Benzocaine/Menthol (*Bkc) 18 Ea Lozenge PO PRN PRN Sore Throat Clopidogrel Bisulfate 75 mg 12/30/24 09:00 12/30/24 09:09 Clopidogrel Bisulfate 75 Mg Tablet PO 75 mg DAILY SHERYL Administration Dexamethasone Sodium Phosphate 6 mg 12/29/24 22:35 12/30/24 20:26 Dexamethasone Sod Phos Inj 10 Mg/Ml 1 Ml Vial IV PUSH 01/07/25 21:01 6 mg HS SHERYL Administration Dextrose 12.5 gm 12/29/24 22:33 Dextrose 50% 25 Gm/50 Ml Syringe IV PUSH PRN PRN Hypoglycemia Protocol Ferrous Sulfate 325 mg 12/30/24 09:00 12/30/24 16:14 Ferrous Sulfate [address] PO 325 mg BID SHERYL Administration Fluticasone Propionate 2 spray 12/30/24 09:00 12/30/24 09:16 Fluticasone Propionate 0.05% Na Spr 16 Gm Btl (*Bkc) NASAL 2 spray DAILY SHERYL Administration Glucagon 1 mg 12/29/24 22:33 Glucagon For Inj 1 Mg Vial IM PRN PRN Hypoglycemia Protocol Glucose 15 gm 12/29/24 22:33 Glucose Oral Gel 15 Gm Of Glucse In 37.5 Gm Tube PO PRN PRN Hypoglycemia Protocol Heparin Sodium (Porcine) 5,000 units 12/30/24 09:00 12/30/24 20:27 Heparin Sodium 5,000 Units/Ml Vial SUB-Q 5,000 units Q12HR SHERYL Administration Azithromycin 500 mg in 250 mls @ 250 mls/hr 12/29/24 18:00 12/30/24 17:03 Zithromax IVPB 250 mls/hr Q24H SHERYL Administration Dextrose 1,000 mls @ 100 mls/hr 12/29/24 22:33 Dextrose 5% 1,000 Ml IVPB PRN PRN Hypoglycemia Protocol Ceftriaxone Sodium 1 gm in 50 mls @ 100 mls/hr 12/30/24 17:00 12/30/24 16:14 Rocephin 1 Gm/Ns 50 Ml IVPB 100 mls/hr Q24H SHERYL Administration Remdesivir 100 mg in 250 mls @ 250 mls/hr 12/30/24 22:00 12/30/24 20:27 IVPB 01/02/25 22:59 250 mls/hr Q24H SHERYL Administration Insulin Aspart 2 - 5 units 12/30/24 08:00 12/30/24 17:04 Insulin Aspart (*Bkc) 100 Units/Ml SUB-Q 2 units TIDWM SHERYL Administration Protocol Magnesium Oxide 400 mg 12/30/24 09:00 12/30/24 09:18 Magnesium Oxide 400 Mg Tablet PO 400 mg DAILY SHERYL Administration Pantoprazole Sodium 40 mg 12/29/24 22:45 12/30/24 20:27 Pantoprazole 40 Mg Tablet PO 40 mg Q12HR SHERYL Administration Vitamin D 2,000 units 12/30/24 09:00 12/30/24 09:00 Cholecalciferol 1,000 Units Tablet PO 2,000 units DAILY SHERYL Administration Radiology Results: ITS Impressions Chest X-Ray 12/29/24 15:39 Impression: 1: Bilateral airspace disease, compatible with pneumonia. Labs Labs: Laboratory Results - last 24 hr 12/30/24 12/30/24 12/30/24 04:37 08:09 11:54 PT INR POC Capillary Glucose 203 H 216 H Hemoglobin A1c 6.6 H Total Bilirubin Direct Bilirubin AST ALT Alkaline Phosphatase Total Protein Albumin 12/30/24 12/30/24 12/31/24 16:41 19:52 04:29 PT 14.8 H INR 1.1 POC Capillary Glucose 227 H 207 H Hemoglobin A1c Total Bilirubin 0.2 Direct Bilirubin 0.0 AST 36 ALT 26 Alkaline Phosphatase 45 Total Protein 6.0 L Albumin 3.5 Quality VTE Prophylaxis VTE prophylaxis: mechanical ordered (SCDs)
[2024-12-31 07:32] LABS: Hematocrit 30.9 % (42.0-52.0); Hemoglobin 9.8 g/dL (14.0-18.0); Immature Granulocyte Absolute 0.01 K/mm3 (0.00-0.031); Immature Granulocyte Percent A 0.2 % (0-0.5); Lymphocytes Absolute Auto 0.38 K/mm3 (0.9-3.2); Lymphocytes Percent Auto 8.9 % (18.3-44.2); Mean Corpuscular HGB Conc 31.7 g/dl (32-36); Mean Corpuscular Volume 91.4 fl (80-100); Monocytes Absolute Auto 0.2 K/mm3 (0.1-0.6); Monocytes Percent Auto 4.7 % (2.6-8.5); Neutrophils Absolute Auto 3.7 K/mm3 (1.3-6.7); Neutrophils Percent Auto 86.2 % (45.5-73.1); Platelet Count Result 205 k/mm3 (150-375); Red Blood Count 3.38 M/mm3 (4.6-6.20); Red Cell Distribution Width 14.6 % (11.5-14.5); White Blood Count 4.3 K/mm3 (4.5-10.0)
[2024-12-31 07:51] LABS: Alanine Aminotransferase 27 U/L (6-50); Albumin Level 3.5 g/dL (3.5-5.1); Alkaline Phosphatase 45 U/L (38-126); Anion Gap 11 mmol/L (4-12); Aspartate Amino Transferase 34 U/L (17-59); Bilirubin,Total 0.1 mg/dL (0.2-1.3); Blood Urea Nitrogen 21 mg/dL (9-20); Calcium 8.5 mg/dL (8.4-10.2); Carbon Dioxide 19 mmol/L (22-30); Chloride 108 mmol/L (98-107); Estimated CRCL calculation 31 ml/min; Estimated Glomerular Filt Rate 46; Glucose 265 mg/dL (65-110); Potassium 4.3 mmol/L (3.4-5.0); Sodium 138 mmol/L (137-145)
[2024-12-31 08:01] LABS: Glucose Point of Care 223 mg/dl (65-105)
[2024-12-31] MEDS: INSULIN ASPART (*BKC) 100 UNITS/ML SUB-Q ×2 (08:24→12:51)
[2024-12-31] MEDS: ACETAMINOPHEN 500 MG TABLET 1000 MG PO (08:27)
[2024-12-31] MEDS: ASCORBIC ACID 500 MG TABLET PO (08:27)
[2024-12-31] MEDS: ATORVASTATIN 40 MG TABLET PO (08:27)
[2024-12-31] MEDS: amLODIPine BESYLATE 2.5 MG TABLET PO (08:27)
[2024-12-31] MEDS: CHOLECALCIFEROL 1,000 UNITS TABLET 2000 UNITS PO (08:27)
[2024-12-31] MEDS: PANTOPRAZOLE 40 MG TABLET PO (08:28)
[2024-12-31] MEDS: HEPARIN SODIUM 5,000 UNITS/ML VIAL 5000 UNITS SUB-Q (08:28)
[2024-12-31] MEDS: FLUTICASONE PROPIONATE 0.05% NA SPR 16 GM BTL (*BKC) 2 SPRAY NASAL (08:28)
[2024-12-31] MEDS: CLOPIDOGREL BISULFATE 75 MG TABLET PO (08:28)
[2024-12-31] MEDS: ASPIRIN 81 MG CHEWABLE TABLET PO (08:28)
[2024-12-31] MEDS: FERROUS SULFATE 325 MG TABLET DR PO (08:28)
[2024-12-31] MEDS: MAGNESIUM OXIDE 400 MG TABLET PO (08:28)
--- NOTE | 2024-12-31 10:57 | P.DS_ITS ---
DS: Admitting Diagnosis Discharge Date 12/31/2024 Admitting Diagnosis COVID, pneumonia, FRANCISCO DS: Discharge Diagnosis Discharge Diagnosis (1) Pneumonia due to COVID-19 virus: Code(s): U07.1 - COVID-19; J12.82 - Pneumonia due to coronavirus disease 2018 Status: Acute (2) Type 2 diabetes mellitus with hyperglycemia, without long-term current use of insulin: Code(s): E11.65 - Type 2 diabetes mellitus with hyperglycemia Status: Acute (3) Acute kidney injury superimposed on CKD: Code(s): N17.9 - Acute kidney failure, unspecified; N18.9 - Chronic kidney disease, unspecified Status: Acute (4) Essential hypertension: Code(s): I10 - Essential (primary) hypertension Status: Acute (5) GERD (gastroesophageal reflux disease): Code(s): K21.9 - Gastro-esophageal reflux disease without esophagitis Status: Acute (6) Hyperlipidemia: Code(s): E78.5 - Hyperlipidemia, unspecified Status: Acute (7) Coronary artery disease: Code(s): I25.10 - Atherosclerotic heart disease of [place] coronary artery without angina pectoris Status: Acute (8) Iron deficiency anemia: Code(s): D50.9 - Iron deficiency anemia, unspecified Status: Acute DS: Summary Hospital Course Reason for hospitalization: Weakness Hospital Course: 84-year-old male with a past medical history of essential hypertension, AAA stent, peripheral vascular disease, 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 Patient reports he took a home COVID test which came back positive today. His reported to nursing staff that the patient acutely became ill on the with generalized weakness and fatigue. The patient reports that he had been having some nasal congestion but takes some Flonase at home. He was noted to mild cough at the time my evaluation but he states that he has not been coughing that bad. But he denies sore throat [place] but then complained to nursing staff there is having sore throat due to cough. He denies any chest pain or shortness of breath. He denies any recent ill contacts. He reports that he has received his COVID vaccines. He has a COVID previously in 2021. He reported subjective chills but was afebrile on arrival to the ER. He reports that he was so weak he could not get out of bed on his own. He states that he feels like he is not emptying his bladder all the way which is a new finding. However bladder scan performed at bedside demonstrated the patient had less than 50 mL of urine. He reports that he has been drinking plenty of fluids but labs demonstrated acute kidney injury in the patient's mucous membranes were dry. While patient was initially placed on O2 supplementation via nasal cannula, he was quickly weaned off of this and did not require any O2 supplementation on the evening of 12/30. He continued to work with Physical therapy/Occupational therapy and was eventually signed off by the services on 12/31, requiring no further rehab. Throughout his hospitalization, patient reported significant improvement in his overall symptoms. Vital signs remained stable throughout his visit and patient at no point had increased white blood cell count. Creatinine remains slightly elevated at 1.48 but with underlying chronic kidney disease, this is very possibly near baseline. I will give patient ambulatory in order to obtain blood work in 3 days to be followed by his PCP to further assess kidney function. Patient is otherwise hemodynamically stable no longer requires hospitalization as he is ambulating without assistance but does not require O2 supplementation, and has no significant physical exam findings.. He can be transitioned to biotics for continued coverage of his pneumonia as well as treatment for his COVID infection. Patient is amenable to discharge at this time and has appropriate follow-up with his primary in the outpatient setting and will schedule this as soon as possible. No other workup is required at this time, plan for discharge home at this time. Status at Discharge Functional status at discharge: independent ambulation Overall status at discharge: patient is back to baseline Time Spent with Patient Time attestation: Total time spent providing and/or coordinating discharge services: 35 Exam Narrative: Weight 68 kg BMI 24.2 Const: Other: Acutely ill-appearing, frail but well-nourished, elderly HENMT: Other: Mucous membranes are moist, upper dentures in place, patient has a portion of his own teeth in the lower jaw, head is normocephalic atraumatic Eyes: Other: Pupils are equal and reactive, positive conjunctival pallor, no scleral icterus, lens replacements noted bilaterally Neck: Other: No JVD, trachea midline Resp: Other: No adventitious lung sounds, lung mack[place] clear Cardio: Other: Regular rate, irregular rhythm, 2+ bilateral radial pedal pulses, no JVD GI: Other: Soft, nontender, nondistended, positive bowel sounds Skin: Other: Warm to touch, non jaundice, mild pallor Neuro: Other: Alert orient x4, speech is clear, no facial asymmetry, moves all extremities equally Extrem: Other: No clubbing, cyanosis or edema, socks were not removed to do foot exam Psych: Other: Pleasant and cooperative, appropriate mood and affect, judgment and insight intact DS: Data Data Completed and Pending Labs on day of discharge: Labs from last 24 hours 12/31/24 12/31/24 12/31/24 07:56 04:29 04:29 WBC RBC Hgb Hct MCV MCH MCHC RDW Plt Count MPV Immature Gran % (Auto) Neut % (Auto) Lymph % (Auto) [place] % (Auto) Eos % (Auto) Baso % (Auto) Lymph # (Auto) [place] # (Auto) Eos # (Auto) Baso # (Auto) Abs Immat Gran (auto) Absolute Neuts (auto) Absolute Nucleated RBC Nucleated RBC % PT INR Sodium Potassium Chloride Carbon Dioxide Anion Gap BUN Creatinine Estim Creat Clear Calc Estimated GFR Glucose POC Capillary Glucose 223 H Calcium Total Bilirubin Direct Bilirubin AST ALT Alkaline Phosphatase Total Protein 6.0 L Albumin 3.5 3.5 12/31/24 12/31/24 12/31/24 04:29 04:29 04:29 WBC RBC Hgb Hct MCV MCH MCHC RDW Plt Count MPV Immature Gran % (Auto) Neut % (Auto) Lymph % (Auto) [place] % (Auto) Eos % (Auto) Baso % (Auto) Lymph # (Auto) [place] # (Auto) Eos # (Auto) Baso # (Auto) Abs Immat Gran (auto) Absolute Neuts (auto) Absolute Nucleated RBC Nucleated RBC % PT INR Sodium Potassium Chloride Carbon Dioxide Anion Gap BUN Creatinine Estim Creat Clear Calc Estimated GFR Glucose POC Capillary Glucose Calcium Total Bilirubin Direct Bilirubin AST 34 ALT 27 26 Alkaline Phosphatase 45 45 Total Protein 6.0 L Albumin 12/31/24 12/31/24 12/30/24 04:29 04:29 19:52 WBC 4.3 L RBC 3.38 L Hgb 9.8 L Hct 30.9 L MCV 91.4 MCH 29.0 MCHC 31.7 L RDW 14.6 H Plt Count 205 MPV 10.0 Immature Gran % (Auto) 0.2 Neut % (Auto) 86.2 H Lymph % (Auto) 8.9 L [place] % (Auto) 4.7 Eos % (Auto) 0.0 Baso % (Auto) 0.0 L Lymph # (Auto) 0.38 L [place] # (Auto) 0.2 Eos # (Auto) 0.0 Baso # (Auto) 0.0 Abs Immat Gran (auto) 0.01 Absolute Neuts (auto) 3.7 Absolute Nucleated RBC 0.000 Nucleated RBC % 0.0 PT 14.8 H INR 1.1 Sodium 138 Potassium 4.3 Chloride 108 H Carbon Dioxide 19 L Anion Gap 11 BUN 21 H Creatinine 1.48 H Estim Creat Clear Calc 31 Estimated GFR 46 L Glucose 265 H POC Capillary Glucose 207 H Calcium 8.5 Total Bilirubin 0.1 L 0.2 Direct Bilirubin 0.0 AST 36 ALT Alkaline Phosphatase Total Protein Albumin 12/30/24 12/30/24 16:41 11:54 WBC RBC Hgb Hct MCV MCH MCHC RDW Plt Count MPV Immature Gran % (Auto) Neut % (Auto) Lymph % (Auto) [place] % (Auto) Eos % (Auto) Baso % (Auto) Lymph # (Auto) [place] # (Auto) Eos # (Auto) Baso # (Auto) Abs Immat Gran (auto) Absolute Neuts (auto) Absolute Nucleated RBC Nucleated RBC % PT INR Sodium Potassium Chloride Carbon Dioxide Anion Gap BUN Creatinine Estim Creat Clear Calc Estimated GFR Glucose POC Capillary Glucose 227 H 216 H Calcium Total Bilirubin Direct Bilirubin AST ALT Alkaline Phosphatase Total Protein Albumin Preliminary micro results at discharge 12/29/24 17:05 Blood Culture - Preliminary Blood 12/29/24 14:51 Blood Culture - Preliminary Blood Discharge Plan Discharge Attending physician on discharge: Juanis Pompa Consulting providers: Jesus Alberto Sher Discharging Clinician: Jesus Alberto Sher Anticipated Discharge Date/Time: 12/31/24 10:38 Patient Disposition: Home Activity: as tolerated Diet: as tolerated Discharge Instructions: Take all medications as prescribed even if feeling better. You will be getting a prescription for Molnupiravir for 4 days and Augmenting for 7 days. Take the full course of both of these medications even if feeling better. I will also be giving you a standing order to obtain blood work in 3 days time to be taken to a location of your choosing. Your primary care physician should follow up on these results during your next visit. Wear a mask in public, and stay away from large crowds Eat well balanced meals and stay hydrated Keep active, but do not over do it If you notice that you are short of breath sit down and take a break Check your SPO2 periodically, if it is low cough and rest, check again in about 15 minutes, if you remain low, you should come back to the hospital If you should experience any chest pain, shortness of breath, temps >100.4 or any other worrisome symptoms please follow up with your PCP come back to the hospital Follow up with your primary in 1 weeks It has been a pleasure taking care of you thank you for using our services Patient Instructions: Antibiotic Form, COVID-19 (Coronavirus Disease 2019) (DC), COVID-19 and Chronic Health Conditions (DC) Patient Language: [place] Stand Alone Forms: General Discharge Information Follow-up/Referrals: Kev,Prince Metcalf [Other] Discharge Medications: New molnupiravir 200 mg capsule 800 mg PO Q12H 4 Days Qty: 32 0RF amoxicillin-pot clavulanate 875-125 mg tablet 1 tablet PO Q12H 7 Days Qty: 14 0RF Continued atorvastatin 40 mg tablet 40 mg PO DAILY metformin 500 mg tablet 500 mg PO BID clopidogrel 75 mg tablet 75 mg PO DAILY ferrous sulfate 325 mg (65 mg iron) tablet 325 mg PO BID omeprazole 20 mg capsule,delayed release(DR/EC) 20 mg PO BID aspirin 81 mg Tablet 81 mg PO DAILY fluticasone propionate 50 mcg/actuation spray,suspension 2 spray INTRANASAL DAILY cholecalciferol (vitamin D3) [Vitamin D3] 50 mcg (2,000 unit) Capsule 50 mcg PO DAILY ascorbic acid (vitamin C) 500 mg Capsule 500 mg PO DAILY acetaminophen 500 mg Tablet 1,000 mg PO BID amlodipine 2.5 mg tablet 2.5 mg PO DAILY glimepiride 2 mg tablet 2 mg PO DAILY magnesium oxide 400 mg (241.3 mg magnesium) tablet 400 mg PO DAILY Other Ambulatory Orders: Basic Metabolic Panel (Routine) Timeframe: 3 Days Location: Determined by Patient Ordered By: Jesus Alberto Sher Date of admission: 12/30/24 15:18 Primary Care Provider: Kev,Prince Metcalf Admitting Provider: Benjamin Skelton Attending physician on admission: Benjamin Skelton Condition: Stable Quality VTE Prophylaxis VTE prophylaxis: mechanical ordered (SCDs)
[2024-12-31 11:51] LABS: Glucose Point of Care 323 mg/dl (65-105)
== END 2024-12-31 13:30 | disposition home or self-care (01) | DRG 177 ==
LOC: ANHED 16:37 → ANH3MEDSUR 18:44 → ANH2MED 18:59
PROVIDERS: Emergency Medicine; Internal Medicine; Admitting Provider General Practice; Emergency Provider Emergency Medicine; Visit Provider Physician Assistant
DX: U07.1 COVID-19 (principal); J12.82 Pneumonia due to coronavirus disease 2019; N17.9 Acute kidney failure, unspecified; E11.65 Type 2 diabetes mellitus with hyperglycemia; E11.22 Type 2 diabetes mellitus with diabetic chronic kidney disease; N18.30 Chronic kidney disease, stage 3 unspecified; I12.9 Hypertensive chronic kidney disease with stage 1 through stage 4 chronic kidney disease, or unspecified chronic kidney disease; E78.5 Hyperlipidemia, unspecified; D50.9 Iron deficiency anemia, unspecified; K21.9 Gastro-esophageal reflux disease without esophagitis; I25.10 Atherosclerotic heart disease of native coronary artery without angina pectoris; I73.9 Peripheral vascular disease, unspecified; Z85.038 Personal history of other malignant neoplasm of large intestine; Z95.1 Presence of aortocoronary bypass graft; Z87.891 Personal history of nicotine dependence; Z95.5 Presence of coronary angioplasty implant and graft; Z96.1 Presence of intraocular lens; Z98.42 Cataract extraction status, left eye; Z98.41 Cataract extraction status, right eye
CPT/HCPCS: 36415; 71045; 80048; 80053; 80076; 81001; 82728; 82948; 83036; 83605; 85025; 85027; 85610; 85652; 86140; 87040; 87637; 93005; 94640; 96361; 96365; 96367; 96368; 97161; 97165; 99285; A9270; G0378; J0248; J0456; J0696; J1100; J1644; J1815; J7030